=== PATIENT | female | born 1970 | race Caucasian/White ===

== ENCOUNTER 2020-03-22 09:38 | Outpatient (CLI) | payer BC, SELFPAY ==
--- NOTE | ~2020-03-22 | MR_ITS ---
EXAMINATION: MR lumbar spine wo con EXAM DATE: 03/22/2020 10:29 INDICATION: Left leg pain 3-4 months. TECHNIQUE: Multi-sequential, multiplanar MR images of the lumbar spine were obtained without contrast . Sagittal T1, T2, T2 fat saturation images. Axial T2 weighted images. Correlation was made with l umbar x-ray from 03/10/2020. FINDINGS: Mild to moderate loss of the L3-4 and L5-S1 disc heights, mild disc disease at the other josh mbar levels. The conus medullaris terminates at the L1/2 level and has normal signal intensity and mo rphology. The vertebral bodies are aligned in the AP dimension. There are no suspicious marrow signa l abnormalities. Paraspinal soft tissue is unremarkable. Level by level evaluation: T12-L1: Disc does not extend beyond the endplate margin. Facet arthropathy: Minimal. Neural foraminal stenosis: No stenosis. Central canal stenosis: No stenosis. L1-L2: Disc does not extend beyond the endplate margin. Facet arthropathy: Mild. Neural foraminal stenosis: No stenosis. Central canal stenosis: No stenosis. L2-L3: There is tiny right central disc extrusion with cephalad migration. Facet arthropathy: Mild. Neural foraminal stenosis: No stenosis. Central canal stenosis: No stenosis. L3-L4: There is a mild diffuse disc bulge. Facet arthropathy: Mild. Neural foraminal stenosis: No stenosis. Central canal stenosis: No stenosis. L4-L5: There is a mild diffuse disc bulge. Facet arthropathy: Mild. Neural foraminal stenosis: Mild left. Central canal stenosis: No stenosis. L5-S1: There is a mild diffuse disc bulge. Facet arthropathy: Mild to moderate left, mild right. Neural foraminal stenosis: No stenosis. Central canal stenosis: No stenosis. IMPRESSION: 1. Overall mild to moderate lumbar spondylosis. Reviewed, dictated and finalized at location G.
== END 2020-03-22 09:39 | disposition home or self-care (01) ==
PROVIDERS: PCP Family Medicine; Visit Provider Orthopaedic Surgery
DX: M51.36 Other intervertebral disc degeneration, lumbar region (principal); M47.816 Spondylosis without myelopathy or radiculopathy, lumbar region
CPT/HCPCS: 72148

== ENCOUNTER 2020-03-31 15:14 | Emergency (ER) | payer BC, SELFPAY ==
--- NOTE | ~2020-03-31 | CT_ITS ---
EXAMINATION: CT brain wo con DATE: 03/31/2020 19:37 INDICATION: Headache. TECHNIQUE: Computed tomography (CT) of the head was performed without intravenous contrast. The mA wa s adjusted according to patient size. Iterative reconstruction technique was employed. The dose-lengt h product was 605.33 mGy-cm. COMPARISON: None FINDINGS: There is a 9 mm hyperdense mass in right thalamus. There is no acute ischemic infarct. The ventricles are normal in size. There is a mucous retention cyst in right maxillary sinus. There is mi ld mucosal thickening in the paranasal sinuses. The mastoid air cells are normal. The orbits are norm al. IMPRESSION: 1. 9 mm hyperdense mass in right thalamus. The differential diagnosis includes acute intraparenchymal hematoma, cavernoma, dystrophic calcification, and metastatic disease. Brain MRI without and with co ntrast is recommended. Reviewed, dictated and finalized at location A. IMPRESSION: 1. 9 mm hyperdense mass in right thalamus. The differential diagnosis includes acute intraparenchymal hematoma, cavernoma, dystrophic calcification, and metas tatic disease. Brain MRI without and with contrast is recommended.
[2020-03-31 15:32] VITALS: BP 147/102; PULSE 90; RESP 20; TEMP 36.7; O2SAT 98
--- NOTE | 2020-03-31 15:37 | ECG_ITS ---
Measurements Intervals [place] Rate: 61 P: 33 LA: 200 QRS: 23 QRSD: 89 T: 46 QT: 407 QTc: 411 Interpretive Statements SINUS RHYTHM BORDERLINE AV CONDUCTION DELAY BASELINE ARTIFACT- I, II, III, AVR, AVL, AVF BORDERLINE ECG Electronically Signed On 03-31-2020 17:18:22 CDT by Eddie Duron D.O.
[2020-03-31 15:49] LABS: Glucose Point of Care 79 (65-105)
[2020-03-31 15:55] LABS: Basophils Absolute Auto 0.1 K/mm3 (0.0-0.1); Basophils Percent Auto 0.7 % (0.2-1.2); Eosinophils Absolute Auto 0.2 K/mm3 (0-0.3); Eosinophils Percent Auto 2.1 % (0-4.4); Hematocrit 42.3 % (37.0-47.0); Hemoglobin 14.3 g/dL (12.0-15.0); Immature Granulocyte Absolute 0.03 K/mm3 (0.00-0.031); Immature Granulocyte Percent A 0.3 % (0-0.5); Lymphocytes Absolute Auto 2.71 K/mm3 (0.9-3.2); Lymphocytes Percent Auto 29.4 % (18.3-44.2); Mean Corpuscular HGB Conc 33.8 g/dl (32-36); Mean Corpuscular Volume 91.6 fl (80-100); Mean Platelet Volume 8.6 fl (7.4-10.4); Monocytes Absolute Auto 0.6 K/mm3 (0.1-0.6); Monocytes Percent Auto 6.3 % (2.6-8.5); Neutrophils Absolute Auto 5.7 K/mm3 (1.3-6.7); Neutrophils Percent Auto 61.2 % (45.5-73.1); Platelet Count Result 302 k/mm3 (150-375); Red Blood Count 4.62 M/mm3 (4.2-5.4); Red Cell Distribution Width 12.3 % (11.5-14.5); White Blood Count 9.2 K/mm3 (4.5-10.0)
[2020-03-31 16:06] LABS: Prothrombin Time 12.4 Seconds (11.1-14.7)
[2020-03-31 16:07] LABS: Anion Gap 7 mmol/L (8-16); Blood Urea Nitrogen 13 mg/dL (7-17); Calcium 9.2 mg/dL (8.4-10.2); Carbon Dioxide 26 mmol/L (22-30); Chloride 105 mmol/L (98-107); Estimated CRCL calculation 100 ml/min; Estimated Glomerular Filt Rate > 60; Glucose 91 mg/dL (65-105); Partial Thromboplastin Time 26.8 SECONDS (22.3-36.8); Potassium 3.9 mmol/L (3.4-5.0); Sodium 138 mmol/L (137-145)
[2020-03-31 16:10] LABS: CRP 0.5 mg/dL (<1.0)
[2020-03-31 16:18] LABS: Troponin I < 0.012 ng/mL (0.000-0.034)
[2020-03-31 19:05] VITALS: BP 165/98; PULSE 72; RESP 17; O2SAT 100
--- NOTE | 2020-03-31 19:08 | ED.HA ---
HPI - Headache General Chief Complaint: Headache Stated Complaint: headache, confusion Time Seen by Provider: 03/31/20 19:07 History of Present Illness HPI Narrative: Severe right sided headache for 8 days. Started suddenly while cleaning her pool. Started posteriorly. Initially associated with burry vision, which was intermittent and has now resolved. Now she feels like she has trouble speaking as fast as she is thinking. She has also noted that today she was dropping things, no specific lateralization. She was seen at [facility] on the 6th when her symptoms started and had a negative head CT. She was then seen at [facility] the following day and had labs done. She said each times the symptoms improved briefly, but never resolve. She has a h/o migraines, this is different. No fever, weakness, trauma Related Data Home Medications Medication Instructions Recorded Confirmed multivitamin 1 tablet PO DAILY 05/21/19 03/31/20 [id number]-[id number]-caffeine 30 1 cap PO Q4-6H PRN 03/31/20 03/31/20 mg-50 mg-325 mg-40 mg capsule Allergies Allergy/AdvReac Type Severity Reaction Status Date / Time coconut Allergy Severe ANPHYLAXIS Verified 03/31/20 20:31 shellfish derived Allergy Severe ANPHYLAXIS Verified 03/31/20 20:31 Penicillins Allergy Mild Rash AN Verified 03/31/20 20:31 INFANT latex Allergy Unknown SKIN Verified 03/31/20 20:31 IRRITATION Wasp Allergy Unknown RASH, HIVES Uncoded 03/31/20 20:31 Review of Systems Review of Systems: All systems reviewed & are unremarkable except as noted in HPI and below Constitutional: Constitutional: Denies fever(s) and Denies weakness Eyes: Eyes: Reports change in vision ENT: Reports dizziness, Denies nasal congestion and Denies sore throat Cardiovascular: Cardiovascular: Denies chest pain Respiratory: Respiratory: Denies dyspnea Gastrointestinal: Gastrointestinal: Denies abdominal pain Genitourinary: Genitourinary: Denies dysuria Musculoskeletal: Musculoskeletal: Denies back pain Neurologic: Reports dizziness, Denies syncope, Reports headache(s), Denies numbness and Denies weakness [facility] Social History Social History Smoking status: Never smoker Alcohol intake: never Course Consultations Consultation #1: Dr. Brandt, SAULO at [facility]. He reports that it appears she had the same lesion found on a prior CT done there a few years ago. He said he is going to review her chart and call me back. Date: 03/31/20 Time: 20:24 Vital Signs Vital signs: Vital Signs Temperature 36.7 C 03/31/20 15:32 Pulse Rate 90 03/31/20 15:32 Respiratory Rate 20 03/31/20 15:32 Blood Pressure 147/102 H 03/31/20 15:32 Pulse Oximetry 98 03/31/20 15:32 Temperature 36.8 C 04/01/20 00:19 Pulse Rate 61 04/01/20 00:19 Respiratory Rate 16 04/01/20 00:19 Blood Pressure 134/86 04/01/20 00:19 Pulse Oximetry 96 04/01/20 00:19 MDM - Headache MDM Narrative Medical decision making narrative: Lesion on head CT. NSGY at [facility] believes it is old, but does recommend transfer for higher level evaluation Differential Diagnosis Differential diagnosis: Likely migraine and headache Medical Records Attestation: I reviewed the patient's medical records. Lab Data Attestation: I reviewed the patient's lab results. Result diagrams: 03/31/20 15:42 03/31/20 15:42 Labs: Lab Results 03/31/20 03/31/20 03/31/20 Range/Units 15:42 15:42 15:42 WBC 9.2 (4.5-10.0) K/mm3 RBC 4.62 (4.2-5.4) M/mm3 Hgb 14.3 (12.0-15.0) g/dL Hct 42.3 (37.0-47.0) % MCV 91.6 (80-100) fl MCH 31.0 (26-34) pg MCHC 33.8 (32-36) g/dl RDW 12.3 (11.5-14.5) % Plt Count 302 (150-375) k/mm3 MPV 8.6 (7.4-10.4) fl Immature Gran % (Auto) 0.3 (0-0.5) % Neut % (Auto) 61.2 (45.5-73.1) % Lymph % (Auto) 29.4 (18.3-44.2) % [place] % (Auto) 6.3 (2.6-8.5) % Eos %
[2020-03-31 19:31] LABS: Add Urine Microscopic? NO; Appearance Urine Clear (Clear); Bilirubin Urine Negative (Negative); Blood Urine Negative (Negative); Color Urine Straw (Yellow); Glucose Urine UA Negative (Negative); Ketones Urine Negative (Negative); Leukocyte Esterase Ur Negative LEU/UL (Negative); Nitrate Urine Negative (Negative); Protein Urine Negative (Negative); Specific Grav Ur 1.014 (1.001-1.035); Urobilinogen Urine Negative mg/dL (<2.0)
[2020-03-31] MEDS: SODIUM CHLORIDE 0.9% IV 1,000 ML 999 ML IV CONT (19:43)
[2020-03-31] MEDS: diphenhydrAMINE HCl INJ 50 MG/ML VIAL 25 MG IV PUSH (19:44)
[2020-03-31] MEDS: KETOROLAC 30 MG/ML VIAL (*BKC) IV PUSH (19:45)
[2020-03-31] MEDS: METOCLOPRAMIDE HCL INJ 10 MG/2 ML VIAL IV PUSH (19:45)
[2020-03-31 19:51] LABS: Barbiturate Screen Urine Positive (Negative); Benzodiazepines Screen Urine Negative (Negative)
[2020-03-31 19:52] LABS: Amphetamine Screen Urine Negative (Negative); Cocaine Screen Urine Negative (Negative); Methadone Screen Urine Negative (Negative); Opiate Screen Urine Negative (Negative); Phencyclidine Screen Urine Negative (Negative)
[2020-03-31 20:05] LABS: Cannabinoid Screen Urine Negative (Negative)
[2020-03-31] MEDS: LABETALOL HCL INJ 100 MG/20 ML VIAL 10 MG IV PUSH (20:20)
[2020-03-31 20:24] VITALS: BP 144/79; PULSE 66; RESP 16; O2SAT 96
[2020-03-31 21:33] VITALS: BP 138/72; PULSE 66; RESP 16; O2SAT 97
[2020-03-31 22:16] VITALS: BP 132/81; PULSE 61; RESP 18; O2SAT 96
--- NOTE | 2020-03-31 23:50 | PC.NURSE ---
2246-called [facility] to transport patient to [facility]. ETA 0030. Terry not available [phone] - Called [facility] to request transport. [facility] returned called and accepted at [phone]- called and cancelled [facility].
[2020-04-01 00:19] VITALS: BP 134/86; PULSE 61; RESP 16; TEMP 36.8; O2SAT 96
== END 2020-04-01 00:20 | disposition short-term general hospital (02) ==
LOC: ANHED 19:26
PROVIDERS: General Practice; Emergency Provider Emergency Medicine; PCP Family Medicine
DX: R51 Headache (principal); G93.9 Disorder of brain, unspecified
CPT/HCPCS: 36415; 70450; 80048; 80307; 81003; 84443; 84484; 85025; 85610; 85730; 86140; 93005; 96365; 96375; 99284; J0131; J1200; J1885; J2765; J7030

== ENCOUNTER 2020-04-17 09:14 | Outpatient (CLI) | payer BC, SELFPAY ==
--- NOTE | ~2020-04-17 | US_ITS ---
EXAMINATION: US carotid duplex BI DATE: 04/17/2020 09:53 INDICATION: Neck pain. TECHNIQUE: Grayscale, color Doppler, and pulsed Doppler images of the cervical carotid arteries were obtained. The degree of vessel stenosis is placed in one of the following categories: normal, <50%, 5 0-69%, >=70% but less than near-occlusion, near-occlusion, or total occlusion. Note that percent sten osis relative to normal distal artery lumen diameter is indirectly measured from velocity measurement s as described by Amaury, et al. Radiology 2003; 229:340-346. COMPARISON: None. FINDINGS: RIGHT: The right common carotid artery (CCA) peak systolic velocity (PSV) is 97 cm/s. The right internal car otid artery (ICA) PSV is 85 cm/s. The right ICA end-diastolic velocity (EDV) is 41 cm/s. The right IC A/CCA PSV ratio is 0.9. Grayscale and color Doppler images yield an estimate of <50% diameter reducti on from plaque in the ICA. There is antegrade flow in the right vertebral artery. LEFT: The left CCA PSV is 101 cm/s. The left ICA PSV is 77 cm/s. The left ICA EDV is 35 cm/s. The left ICA/ CCA PSV ratio is 0.7. Grayscale and color Doppler images yield an estimate of <50% diameter reduction from plaque in the ICA. There is antegrade flow in the left vertebral artery. IMPRESSION: 1. <50% stenosis in the right internal carotid artery. 2. <50% stenosis in the left internal carotid artery. Reviewed, dictated and finalized at location A.
== END 2020-04-17 09:15 | disposition home or self-care (01) ==
PROVIDERS: Visit Provider Family Medicine
DX: H53.9 Unspecified visual disturbance (principal); M54.2 Cervicalgia; R51.9 Headache, unspecified; I65.23 Occlusion and stenosis of bilateral carotid arteries
CPT/HCPCS: 93880

== ENCOUNTER 2020-12-23 14:11 | Outpatient (CLI) | payer BC, SELFPAY ==
[2020-12-23 18:57] LABS: Basophils Absolute Auto 0.1 K/mm3 (0.0-0.1); Basophils Percent Auto 0.6 % (0.2-1.2); Eosinophils Absolute Auto 0.2 K/mm3 (0-0.3); Eosinophils Percent Auto 2.2 % (0-4.4); Immature Granulocyte Absolute 0.04 K/mm3 (0.00-0.031); Immature Granulocyte Percent A 0.4 % (0-0.5); Lymphocytes Absolute Auto 2.34 K/mm3 (0.9-3.2); Lymphocytes Percent Auto 26.1 % (18.3-44.2); Mean Corpuscular HGB Conc 33.3 g/dl (32-36); Mean Corpuscular Hemoglobin 30.8 pg (26-34); Mean Corpuscular Volume 92.5 fl (80-100); Mean Platelet Volume 8.7 fl (7.4-10.4); Monocytes Absolute Auto 0.5 K/mm3 (0.1-0.6); Monocytes Percent Auto 5.6 % (2.6-8.5); Neutrophils Absolute Auto 5.8 K/mm3 (1.3-6.7); Neutrophils Percent Auto 65.1 % (45.5-73.1); Platelet Count Result 326 k/mm3 (150-375); Red Blood Count 4.54 M/mm3 (4.2-5.4); Red Cell Distribution Width 12.5 % (11.5-14.5)
[2020-12-23 19:08] LABS: D Dimer 0.32 ug/mL (<0.48)
[2020-12-23 19:22] LABS: Anion Gap 9 mmol/L (8-16); Blood Urea Nitrogen 12 mg/dL (7-17); Calcium 9.7 mg/dL (8.4-10.2); Carbon Dioxide 27 mmol/L (22-30); Chloride 107 mmol/L (98-107); Estimated Glomerular Filt Rate > 60; Glucose 124 mg/dL (65-105); Potassium 4.1 mmol/L (3.4-5.0); Sodium 143 mmol/L (137-145)
[2021-01-03 00:27] LABS: Antithrombin III Activity 101 % normal (80-135); Protein S Antigen, Free 108 % normal (50-147)
== END 2020-12-23 14:12 | disposition home or self-care (01) ==
LOC: ANHBWCLAB 14:13
PROVIDERS: PCP Family Medicine; Visit Provider Family Medicine
DX: I82.402 Acute embolism and thrombosis of unspecified deep veins of left lower extremity (principal); E55.9 Vitamin D deficiency, unspecified; Z79.899 Other long term (current) drug therapy
CPT/HCPCS: 36415; 80048; 81240; 81241; 85025; 85301; 85303; 85306; 85380

== ENCOUNTER 2020-12-23 15:16 | Outpatient (CLI) | payer BC, SELFPAY ==
--- NOTE | ~2020-12-23 | US_ITS ---
EXAMINATION: US venous doppler [facility] DATE: 12/23/2020 15:53 INDICATION: Pain, palpable lump and skin discoloration in the right lower limb. TECHNIQUE: Grayscale ultrasound images without and with compression and Doppler ultrasound images of the bilateral lower extremity veins were obtained. COMPARISON: None. FINDINGS: The visualized portions of right common femoral vein, profunda (deep) femoral vein, femoral vein, pop liteal vein, posterior tibial veins, peroneal veins, gastrocnemius vein and greater saphenous vein ou tflow are patent. The palpable abnormality of concern appears to correspond to a patent and compressi ble superficial vein at the medial right calf. No abnormal masses or fluid collections identified. The visualized portions of left common femoral vein, profunda femoral vein, femoral vein, popliteal v ein, posterior tibial veins, peroneal veins, gastrocnemius vein and greater saphenous vein outflow ar e patent. IMPRESSION: 1. No deep venous thrombosis in either lower limb. 2. Palpable abnormality at the medial right calf corresponds to a patent subcutaneous vein. Reviewed, dictated and finalized at location A. IMPRESSION: 1. No deep venous thrombosis in either lower limb. 2. Palpable abnormality at the medial right calf corresponds to a patent subcut aneous vein.
== END 2020-12-23 15:17 | disposition home or self-care (01) ==
LOC: ANHIMG 15:19
PROVIDERS: PCP Family Medicine; Visit Provider Family Medicine
DX: I82.402 Acute embolism and thrombosis of unspecified deep veins of left lower extremity (principal)
CPT/HCPCS: 93970

== ENCOUNTER 2021-08-06 08:23 | Outpatient (CLI) | payer OTHER, SELFPAY ==
[2021-08-06 20:28] LABS: Hemoglobin A1C 5.1 % (<5.7)
== END 2021-08-06 08:24 | disposition home or self-care (01) ==
PROVIDERS: PCP Family Medicine; Visit Provider Family Medicine
DX: R73.9 Hyperglycemia, unspecified (principal)
CPT/HCPCS: 36415; 83036

== ENCOUNTER 2021-10-13 10:52 | Outpatient (CLI) | payer OTHER, SELFPAY | END 2021-10-13 10:53 | disposition home or self-care (01) | LOC: ANHBWCAUD 10:52 | PROVIDERS: PCP Family Medicine; Visit Provider Family Medicine | DX: H93.19 Tinnitus, unspecified ear (principal) | CPT/HCPCS: 92557; 92567 ==

== ENCOUNTER 2021-10-19 02:23 | Day surgery (SDC) | payer OTHER, SELFPAY ==
[2021-10-06 13:38] VITALS: BMI 41.8
[2021-10-19 11:21] VITALS: BP 156/99; PULSE 87; RESP 17; TEMP 36.2; O2SAT 98; BMI 41.8
--- NOTE | 2021-10-19 11:30 | WPDGICN ---
Assessment and Plan Assessment and plan (1) Colon cancer screening: Code(s): Z12.11 - Encounter for screening for malignant neoplasm of colon Status: Acute Assessment and Plan: Colonoscopy with possible biopsy or polypectomy or cautery or injection of substances. GI Consult Note Consult date/time: 10/19/21 11:30 HPI: Thuy Cordon is a 51 year old female Referred for colon cancer screening. she is not aware of any family history of colon cancer Review of Systems Review of Systems: All systems reviewed & are unremarkable except as noted in HPI and below PMFSH Past Medical History Medical History Arthritis Deep vein blood clot of left lower extremity Deep vein blood clot of right lower extremity Generalized headaches Inflammatory arthritis Lumbar degenerative disc disease Osteoarthritis of both knees Plantar fasciitis Trochanteric bursitis of both hips Surgical History Surgical History deliv NOS-unsp H/O adenoidectomy H/O: hysterectomy History of carpal tunnel release of both wrists History of cholecystectomy History of tonsillectomy Family History Family History Father Heart disease Acute myocardial infarction Grandparent Acute myocardial infarction Grandparent Acute myocardial infarction Grandparent Cancer Social History Social History Smoking status: Never smoker Alcohol intake: current Drinks per week: 1 Alcohol use details: Socially Substance use: never Substance use type: does not use Living arrangements: with family Spiritual care concerns: No Meds Home Medications and Allergies Home Medications Medication Instructions Recorded Confirmed Type multivitamin 1 tablet PO DAILY 05/21/19 10/19/21 History ascorbic acid 100 mg-elderberry 1 tablet PO DAILY 08/06/21 10/19/21 History fruit 50 mg chewable tablet cholecalciferol (vitamin D3) 125 125 mcg PO DAILY 08/06/21 10/19/21 History mcg (5,000 unit) capsule zinc 50 mg tablet 50 mg PO DAILY 08/06/21 10/19/21 History rizatriptan 10 mg PO PRN PRN 10/06/21 10/19/21 History topiramate 50 mg tablet 50 mg PO BID #180 tablet 10/07/21 10/19/21 Rx Allergies Allergy/AdvReac Type Severity Reaction Status Date / Time coconut Allergy Severe ANPHYLAXIS Verified 10/19/21 11:20 shellfish derived Allergy Severe ANPHYLAXIS Verified 10/19/21 11:20 Penicillins Allergy Mild Rash AN Verified 10/19/21 11:20 latex Allergy Unknown SKIN Verified 10/19/21 11:20 IRRITATION Wasp Allergy Unknown RASH, HIVES Uncoded 10/19/21 11:20 Vital Signs Vital Signs - 24 hr 10/19/21 11:21 Temperature 36.2 C L Pulse Rate 87 Respiratory Rate 17 Blood Pressure 156/99 H Pulse Oximetry 98 Exam Const: General: alert Orientation/consciousness: patient oriented x3 Resp: Auscultation: clear to auscultation bilaterally Cardio: Rhythm: regular rhythm GI: GI Palp: Yes Soft to palpation and No Tenderness to palpation present (GI) Neuro: General: patient oriented x3
[2021-10-19] MEDS: LACTATED RINGERS 1,000 ML 150 ML IV CONT (11:36)
--- NOTE | 2021-10-19 12:13 | WPDANESEPPF ---
Anes - Initial Pre Proc Eval Procedure: Operation Date: 10/19/21 12:30 Proposed Procedures p Screening Colonoscopy - David Rae MD Date/Time: 10/19/21 12:13 Surgeon: David Rae MD Pre Op Diagnosis: neoplasm screening Patient Data Age: 51 Gender: F Height: 1.73 m Weight: 124.8 kg Last Vital Signs Temp 97.2 F L 10/19/21 11:21 Pulse 87 10/19/21 11:21 Resp 17 10/19/21 11:21 BP 156/99 H 10/19/21 11:21 Pulse Ox 98 10/19/21 11:21 Allergies Allergy/AdvReac Type Severity Reaction Status Date / Time coconut Allergy Severe ANPHYLAXIS Verified 10/19/21 11:20 shellfish derived Allergy Severe ANPHYLAXIS Verified 10/19/21 11:20 Penicillins Allergy Mild Rash AN Verified 10/19/21 11:20 latex Allergy Unknown SKIN Verified 10/19/21 11:20 IRRITATION Wasp Allergy Unknown RASH, HIVES Uncoded 10/19/21 11:20 Home Medications Medication Instructions Recorded Confirmed Type multivitamin 1 tablet PO DAILY 05/21/19 10/19/21 History ascorbic acid 100 mg-elderberry 1 tablet PO DAILY 08/06/21 10/19/21 History fruit 50 mg chewable tablet cholecalciferol (vitamin D3) 125 125 mcg PO DAILY 08/06/21 10/19/21 History mcg (5,000 unit) capsule zinc 50 mg tablet 50 mg PO DAILY 08/06/21 10/19/21 History rizatriptan 10 mg PO PRN PRN 10/06/21 10/19/21 History topiramate 50 mg tablet 50 mg PO BID #180 tablet 10/07/21 10/19/21 Rx Patient hx anesthesia problems: none Family hx anesthesia problems: none Results Review: All pre-operative results and documents have been reviewed as part of the pre-operative evaluation. [facility] Past Medical History Medical History Arthritis Deep vein blood clot of left lower extremity Deep vein blood clot of right lower extremity Generalized headaches Inflammatory arthritis Lumbar degenerative disc disease Osteoarthritis of both knees Plantar fasciitis Trochanteric bursitis of both hips Surgical History Surgical History deliv NOS-unsp H/O adenoidectomy H/O: hysterectomy History of carpal tunnel release of both wrists History of cholecystectomy History of tonsillectomy Family History Family History Father Heart disease Acute myocardial infarction Grandparent Acute myocardial infarction Grandparent Acute myocardial infarction Grandparent Cancer Social History Social History Smoking status: Never smoker Alcohol intake: current Drinks per week: 1 Alcohol use details: Socially Substance use: never Substance use type: does not use Living arrangements: with family Spiritual care concerns: No Anes - Eval Final PreProcedure Day of Procedure 10/19/21 12:13 Patient weight: morbidly obese Heart: regular rate and rhythm Lungs: clear to auscultation Airway: Mallampati scale class II Neurological: alert and oriented Last oral intake: >/= 8 hours ASA classification: III Emergent: no Anesthetic plan: proceed Anesthesia type and monitoring: general GIVS and standard monitoring Results Review: All pre-operative results and documents have been reviewed as part of the pre-operative evaluation. Informed Consent: The patient's anesthetic plan and its attendant risks and benefits were discussed with the patient/family/POA. Questions were solicited and answers provided to the satisfaction of the patient/family/POA.
[2021-10-19 12:35] VITALS: BP 100/49; PULSE 67; RESP 17; O2SAT 97
[2021-10-19 12:45] VITALS: BP 119/63; PULSE 64; RESP 17; O2SAT 95
[2021-10-19 12:55] VITALS: BP 120/66; PULSE 65; RESP 17; O2SAT 98
== END 2021-10-19 13:03 | disposition home or self-care (01) ==
PROVIDERS: PCP Family Medicine; Visit Provider Internal Medicine Gastroenterology
PROC: 0DJD8ZZ Inspection of Lower Intestinal Tract, Via Natural or Artificial Opening Endoscopic (ICD-10-PCS; CPT 45378; principal; 2021-10-19 12:30)
DX: Z12.11 Encounter for screening for malignant neoplasm of colon (principal); K57.30 Diverticulosis of large intestine without perforation or abscess without bleeding; E66.01 Morbid (severe) obesity due to excess calories; Z68.41 Body mass index [BMI] 40.0-44.9, adult
CPT/HCPCS: 45378; J2704; J7120

== ENCOUNTER 2022-06-01 07:20 | Outpatient (CLI) | payer OTHER, SELFPAY ==
[2022-06-01 18:54] LABS: Basophils Percent Auto 0.3 % (0.2-1.2); Eosinophils Percent Auto 0.2 % (0-4.4); Hematocrit 45.6 % (37.0-47.0); Hemoglobin 15.1 g/dL (12.0-15.0); Immature Granulocyte Absolute 0.06 K/mm3 (0.00-0.031); Immature Granulocyte Percent A 0.5 % (0-0.5); Lymphocytes Absolute Auto 2.91 K/mm3 (0.9-3.2); Lymphocytes Percent Auto 24.4 % (18.3-44.2); Mean Corpuscular HGB Conc 33.1 g/dl (32-36); Mean Corpuscular Hemoglobin 30.5 pg (26-34); Mean Corpuscular Volume 92.1 fl (80-100); Mean Platelet Volume 8.9 fl (7.4-10.4); Monocytes Absolute Auto 0.6 K/mm3 (0.1-0.6); Monocytes Percent Auto 5.1 % (2.6-8.5); Neutrophils Absolute Auto 8.3 K/mm3 (1.3-6.7); Neutrophils Percent Auto 69.5 % (45.5-73.1); Platelet Count Result 410 k/mm3 (150-375); Red Blood Count 4.95 M/mm3 (4.2-5.4); Red Cell Distribution Width 12.7 % (11.5-14.5); White Blood Count 11.9 K/mm3 (4.5-10.0)
[2022-06-01 19:03] LABS: Alanine Aminotransferase 27 U/L (6-35); Albumin Level 4.4 g/dL (3.5-5.1); Alkaline Phosphatase 87 U/L (38-126); Anion Gap 9 mmol/L (8-16); Aspartate Amino Transferase 47 U/L (14-36); Bilirubin,Total 0.7 mg/dL (0.2-1.3); Blood Urea Nitrogen 14 mg/dL (7-17); Calcium 9.2 mg/dL (8.4-10.2); Carbon Dioxide 21 mmol/L (22-30); Chloride 108 mmol/L (98-107); Cholesterol 224 mg/dL (0-200); Estimated Glomerular Filt Rate > 60; Glucose 94 mg/dL (65-110); HDL Direct 49 mg/dL; Potassium 3.9 mmol/L (3.4-5.0); Sodium 138 mmol/L (137-145); Triglycerides 85 mg/dL (<150)
[2022-06-01 19:13] LABS: LDL Cholesterol Direct 140 mg/dL
== END 2022-06-01 07:21 | disposition home or self-care (01) ==
LOC: ANHBWCLAB 07:21
PROVIDERS: PCP Family Medicine; Visit Provider Family Medicine
DX: Z00.00 Encounter for general adult medical examination without abnormal findings (principal)
CPT/HCPCS: 36415; 80053; 80061; 85025

== ENCOUNTER 2023-01-08 09:19 | Emergency (ER) | payer OTHER, SELFPAY ==
[2023-01-08 09:28] VITALS: BP 129/81; PULSE 76; RESP 16; TEMP 36.4; O2SAT 99
--- NOTE | 2023-01-08 10:52 | ED.GENADULT ---
HPI - General Adult General Chief complaint: Upper Respiratory Infection Stated complaint: Sore Throat Source: patient Mode of arrival: ambulatory Limitations: no limitations History of Present Illness HPI narrative: Patient presents for evaluation of sore throat for the last 2 days. She had strep pharyngitis on 12/18/2022 was given a prescription for azithromycin which she completed as directed. Her symptoms improved however she had recurrence thereafter. She believes she had a low-grade fever. No chills, nausea, vomiting, diarrhea, cough or ear pain. Another family member had strep at the start of this month. She does not smoke. She is not taking any medications to assist with her symptom. Related Data Allergies Allergy/AdvReac Type Severity Reaction Status Date / Time coconut Allergy Severe ANPHYLAXIS Verified 01/08/23 09:37 shellfish derived Allergy Severe ANPHYLAXIS Verified 01/08/23 09:37 Penicillins Allergy Mild Rash AN Verified 01/08/23 09:37 INFANT latex Allergy Unknown SKIN Verified 01/08/23 09:37 IRRITATION Wasp Allergy Unknown RASH, HIVES Uncoded 01/08/23 09:37 Review of Systems Review of Systems: CONSTITUTIONAL: Reports subjective fever. Denies chills, or sweats. EYES: Denies visual changes, redness, or discharge. ENT: Reports sore throat. Denies rhinorrhea, congestion, or otalgia. CARDIOVASCULAR: Denies chest pain, palpitations, or edema. RESPIRATORY: Denies cough or dyspnea. GASTROINTESTINAL: Denies abdominal pain, nausea, vomiting, or diarrhea. GENITOURINARY: Denies dysuria or hematuria. SKIN: Denies rash or itching. MUSCULOSKELETAL: Denies back pain, joint pain, or myalgia. NEUROLOGIC: Denies headache, numbness, dizziness, or weakness. PSYCHIATRIC: Denies anxiety or depression. [facility] Past Medical History Medical History Arthritis Deep vein blood clot of left lower extremity Deep vein blood clot of right lower extremity Generalized headaches Inflammatory arthritis Lumbar degenerative disc disease Osteoarthritis of both knees Plantar fasciitis Trochanteric bursitis of both hips Surgical History Surgical History deliv NOS-unsp H/O adenoidectomy H/O: hysterectomy History of carpal tunnel release of both wrists History of cholecystectomy History of tonsillectomy Family History Family History Father Heart disease Acute myocardial infarction Grandparent Acute myocardial infarction Grandparent Acute myocardial infarction Grandparent Cancer Social History Social History Smoking status: Never smoker Alcohol intake: current Drinks per week: 1 Alcohol use details: Socially Substance use: never Substance use type: does not use Lack of Transportation: No Lack of Food: Never True Current Housing: I Have Housing Concerned About Future Housing: No Difficulty Paying Gas/Electric Bills: No Difficulty Paying for Meds: No Currently Unemployed: No Education: High School Diploma/GED Difficulty w/ Childcare or Family Care: No Living arrangements: with family Spiritual care concerns: No Exam Narrative: GENERAL: Well-appearing, well-nourished, and in no acute distress. HEAD: Normocephalic, atraumatic. EYES: PERRLA and EOMI. ENT: Nares clear, no rhinorrhea or epistaxis. Mucous membranes moist. Oropharynx without tonsillar hypertrophy exudate or other lesions. There is posterior pharyngeal erythema without exudate. Uvula is midline. Bilateral TMs pearly wong nonbulging NECK: Supple. No adenopathy or masses. No carotid bruits or JVD CHEST: Clear to auscultation. No respiratory distress. No wheezes rales or rhonchi HEART: Regular rate and rhythm. No murmur heard. Normal peripheral pulses. ABDOMEN: S
== END 2023-01-08 09:54 | disposition home or self-care (01) ==
PROVIDERS: Emergency Provider Nurse Practitioner; PCP Family Medicine
DX: J02.0 Streptococcal pharyngitis (principal); M17.0 Bilateral primary osteoarthritis of knee; M51.36 Other intervertebral disc degeneration, lumbar region; Z86.718 Personal history of other venous thrombosis and embolism
CPT/HCPCS: 87880; 99213; G0463

== ENCOUNTER 2023-04-02 07:29 | Outpatient (CLI) | payer OTHER, SELFPAY ==
--- NOTE | ~2023-04-02 | MR_ITS ---
MRI of the left hip Clinical history: Trochanteric bursitis Technique: Coronal T1-weighted, T2-weighted, and proton-density fat-sat images, and axial T1-weighted and proton-density fat-sat images were acquired through the pelvis. Coronal T2-weighted images and c oronal, axial, and sagittal proton-density fat-sat images were acquired through the left hip. Findings: There is no fracture, avascular necrosis, or transient osteoporosis of either hip. Bone mar row signals the proximal femora and visualized pelvic bones are unremarkable. Bilateral hip and SI heladio ints are intact. No significant erosive or degenerative arthropathy. No joint effusion. Questionable small tear of the superolateral left acetabular labrum. Visualized musculature about the pelvis and left hip is unremarkable. No muscle atrophy or edema. Vis ually tendons are intact. No evidence for bursitis. No other soft tissue mass or fluid collection see n. IMPRESSION: Questionable subtle tear of the superior lateral left acetabular labrum. No other significant findings. Reviewed, dictated and finalized at location .
--- NOTE | ~2023-04-02 | MR_ITS ---
MRI of the right hip Clinical history: Trochanteric bursitis Technique: Coronal T1-weighted, T2-weighted, and proton-density fat-sat images, and axial T1-weighted and proton-density fat-sat images were acquired through the pelvis. Coronal T2-weighted images and c oronal, axial, and sagittal proton-density fat-sat images were acquired through the right hip. Findings: There is no fracture, avascular necrosis, or transient osteoporosis of either hip. Bone mar row signals the proximal femora and visualized pelvic bones are unremarkable. Bilateral hip and SI heladio ints are intact. No significant erosive or degenerative arthropathy. No joint effusion. No right acet abular labral tear identified. Visualized musculature about the pelvis and right hip is unremarkable. No muscle atrophy or edema. Vi sually tendons are intact. Possible minimal edematous change at the right greater trochanteric bursa. No other soft tissue mass or fluid collection seen. IMPRESSION: Possible minimal incipient right trochanteric bursitis. No other significant abnormalities. Reviewed, dictated and finalized at [facility] [place].
== END 2023-04-02 07:30 | disposition home or self-care (01) ==
PROVIDERS: PCP Family Medicine; Visit Provider Orthopaedic Surgery
DX: M70.61 Trochanteric bursitis, right hip (principal); M70.62 Trochanteric bursitis, left hip
CPT/HCPCS: 73721

== ENCOUNTER 2023-06-16 01:49 | Day surgery (SDC) | payer OTHER, SELFPAY ==
[2023-06-07 09:55] VITALS: BMI 39.5
--- NOTE | 2023-06-07 09:59 | PC.NURSE ---
Report to the Outpatient Waiting Room, entrance under the green pavilion located off [facility], at time 0830 on date06/16/23. Planned Procedure Time: 1030. Time changes happen often and if your time is changed the preop area will call you the afternoon before. - You and your visitor will be asked to self-screen and do not enter if you have any COVID symptoms. - A mask is optional within the hospital at this time. Patients may have clear liquids (water, carbonated beverages, clear teas, apple juice) until 3 hours prior to surgery with a maximum of 20 ounces. - No food from midnight until time of surgery Take the following medications with a SIP of water the morning of surgery: TOPIRAMATE DO NOT STOP ANY OF YOUR OTHER PRESCRIPTION MEDICATIONS PRIOR TO SURGERY ?EXCEPT THE FOLLOWING Medications to discontinue per physician: VITAMINS Date to take last dose: 06/12/23 Please no make-up, nail korean, hairspray, perfume, deodorant, or body powder the day of surgery. No jewelry (including any body piercings) or valuables the day of surgery, leave them at home. Please take a shower or bath the night before, or the morning of, surgery with an antibacterial soap. Wear comfortable, loose fitting clothing. - Jewelry must be removed prior to entering the operating room. Rings and piercings that are not removed may be cut off. - The hospital will not accept responsibility for valuables. - Please leave all valuables, including medications, at home the day of surgery. If you are going home after surgery, a licensed m48/m60 tank driver must drive you home. - NO public transportation without another adult if you receive anesthesia. - We recommend that an adult stay with you for 24 hours following discharge. - We also recommend that you do not drive, make important decision, drink alcoholic beverages, or take any drugs that were not prescribed by your health care provider for at least 24 hours after your discharge time. Follow any additional instructions given to you from your surgeon. If you or anyone in your household have experienced Covid symptoms in the past week, please notify your surgeon or the nurse liaison at the phone number below for possible testing. Telephone instructions given to PT - MADDIE JIMENEZ and asked if any additional questions and then verbalized understanding. Patient advised to call surgeon office or pre surgery nurse liaison [phone] if any additional questions.
[2023-06-16] VITALS (12 sets, daily range): BP systolic 104–152; BP diastolic 69–99; PULSE 60–79; RESP 12–18; TEMP 36.6–36.7; O2SAT 92–99
--- NOTE | 2023-06-16 09:56 | WPDANESEPPF ---
Anes - Initial Pre Proc Eval Procedure: Operation Date: 06/16/23 10:30 Proposed Procedures p Right Hip Arthroscopic Trochanteric Bursectomy, Ileotibial Band Release - Steve Hsu MD Date/Time: 06/16/23 09:56 Surgeon: Steve Hsu MD Pre Op Diagnosis: right hip trochanteric bursitis Patient Data Age: 53 Gender: F Height: 1.73 m Weight: 121 kg Allergies Allergy/AdvReac Type Severity Reaction Status Date / Time coconut Allergy Severe ANPHYLAXIS Verified 06/07/23 09:54 shellfish derived Allergy Severe ANPHYLAXIS Verified 06/07/23 09:54 Penicillins Allergy Mild Rash AN Verified 06/07/23 09:54 INFANT latex Allergy Unknown SKIN Verified 06/07/23 09:54 IRRITATION propoxyphene AdvReac Nausea and Verified 06/07/23 09:55 [From [place]-N] Vomiting Wasp Allergy Unknown RASH, HIVES Uncoded 06/07/23 09:54 Home Medications Medication Instructions Recorded Confirmed Type multivitamin 1 tablet PO DAILY 04/15/23 06/07/23 History topiramate 50 mg tablet 50 mg PO DAILY #90 tabs 05/27/23 06/07/23 Rx oxycodone-acetaminophen 5 mg-325 1 - 2 tablet PO Q4-6H PRN pain #30 06/16/23 Rx mg tablet tabs Patient hx anesthesia problems: none and other (motion sickness) Family hx anesthesia problems: none Results Review: All pre-operative results and documents have been reviewed as part of the pre-operative evaluation. [facility] Past Medical History Medical History Arthritis Deep vein blood clot of left lower extremity Deep vein blood clot of right lower extremity Generalized headaches Inflammatory arthritis Lumbar degenerative disc disease Osteoarthritis of both knees Plantar fasciitis Trochanteric bursitis of both hips Surgical History Surgical History deliv NOS-unsp H/O adenoidectomy H/O: hysterectomy History of carpal tunnel release of both wrists History of cholecystectomy History of tonsillectomy Family History Family History Father Heart disease Acute myocardial infarction Grandparent Acute myocardial infarction Grandparent Acute myocardial infarction Grandparent Cancer Social History Social History Smoking status: Never smoker Alcohol intake: never Drinks per week: 1 Alcohol use details: Socially Substance use: never Substance use type: does not use Lack of Transportation: No Lack of Food: Never True Current Housing: I Have Housing Concerned About Future Housing: No Difficulty Paying Gas/Electric Bills: No Difficulty Paying for Meds: No Currently Unemployed: No Education: High School Diploma/GED Difficulty w/ Childcare or Family Care: No Living arrangements: with family Spiritual care concerns: No Anes - Eval Final PreProcedure Day of Procedure 06/16/23 09:56 Patient weight: morbidly obese Heart: regular rate and rhythm Lungs: clear to auscultation Airway: Mallampati scale class II Neurological: alert and oriented Last oral intake: >/= 8 hours ASA classification: III Emergent: no Anesthetic plan: proceed Anesthesia type and monitoring: general LMA and standard monitoring Results Review: All pre-operative results and documents have been reviewed as part of the pre-operative evaluation. Informed Consent: The patient's anesthetic plan and its attendant risks and benefits were discussed with the patient/family/POA. Questions were solicited and answers provided to the satisfaction of the patient/family/POA.
[2023-06-16] MEDS: LACTATED RINGERS 1,000 ML 30 ML IV CONT ×2 (10:00→11:52)
[2023-06-16] MEDS: KETOROLAC 15 MG/ML VIAL (*BKC) IV PUSH (10:00)
[2023-06-16] MEDS: ACETAMINOPHEN 500 MG TABLET 1000 MG PO (10:00)
--- NOTE | 2023-06-16 10:10 | WPDHPUPDATE1 ---
History and Physical Update Update Date/Time: 06/16/23 10:10 History and Physical has been reviewed, including an updated exam of the patient. There are NO changes in the patient's condition. Risks, benefits, and alternatives have been discussed and questions answered. Patient agrees to proceed with procedure.
[2023-06-16] MEDS: ceFAZolin 3 GM/D5W 100 ML 100 ML IVPB (10:35)
[2023-06-16] MEDS: SCOPOLAMINE 1.5 MG PATCH TRANSDERM (11:21)
[2023-06-16] MEDS: BUPIVACAINE/EPINEPHRINE 0.5% 10 ML VIAL 30 ML INFILTRATE (11:22)
[2023-06-16] MEDS: fentaNYL CITRATE INJ (*CRX) 100 MCG/2 ML VIAL 25 MCG IV PUSH (12:40)
[2023-06-16] MEDS: oxyCODONE HCL (*CRX) 5 MG TAB IR PO (14:07)
--- NOTE | 2023-06-16 16:07 | W.PM.PROC2 ---
Procedure Note - Detailed Date of Procedure 06/16/23 Pre-op Diagnosis right hip trochanteric bursitis Post-op Diagnosis Same Procedure Performed Right hip IT band release and trochanteric bursectomy. Surgeon Steve Hsu MD Bottom Hoop Driver Trisha Dugan PA-C Anesthesia General Description of Procedure Preoperative antibiotics were given. The patient was brought to the operating room. A general anesthetic was administered. She was carefully placed in the lateral position on the beanbag. The hip was prepped and draped in the usual sterile fashion. Standard superior and inferior arthroscopic portals were established. The high point of the greater trochanter was central to the portals. The fascia was cleared using the arthroscopic shaver. A longitudinal split was created in the fascia over the high point of the trochanter. The leg was abducted and the bursa was removed using the shaver. The radiofrequency probe was used were necessary to control small bleeding vessels. Particular care was taken to avoid moving posteriorly towards the sciatic nerve. The abductor musculature was identified and protected. There were no tears noted. Abrasion at the high point of the trochanter was observed and confirmed. The complete release of this area was confirmed. The hip was internally and externally rotated to assure that there was no further contact or pressure points. Estimated Blood Loss -10.0 Pathology None sent Complications No immediate complications Condition Stable Disposition PACU [facility] Billing Surgery - Charge Forward: Surgery Billing
== END 2023-06-16 14:47 | disposition home or self-care (01) ==
PROVIDERS: PCP Family Medicine; Visit Provider Orthopaedic Surgery
PROC: (CPT 29860; principal; 2023-06-16 10:30)
DX: M70.61 Trochanteric bursitis, right hip (principal); Z86.718 Personal history of other venous thrombosis and embolism; E66.01 Morbid (severe) obesity due to excess calories; Z68.41 Body mass index [BMI] 40.0-44.9, adult
CPT/HCPCS: 29999; A9270; J0690; J1100; J1170; J1200; J1885; J2250; J2371; J2405; J2704; J3010; J7120

== ENCOUNTER 2023-09-01 00:18 | Day surgery (SDC) | payer OTHER, SELFPAY ==
[2023-08-24 13:37] VITALS: BMI 40.2
--- NOTE | 2023-08-24 13:45 | PC.NURSE ---
Report to the Outpatient Waiting Room, entrance under the green pavilion located off [facility], at time on date . Planned Procedure Time: . Time changes happen often and if your time is changed the preop area will call you the afternoon before. - You and your visitor will be asked to self-screen and do not enter if you have any COVID symptoms. - A mask is optional within the hospital at this time. Patients may have clear liquids (water, carbonated beverages, clear teas, apple juice) until 3 hours prior to surgery with a maximum of 20 ounces. - No food from midnight until time of surgery - Infants may have breast milk until 4 hours before surgery, infant formula 6 hours prior to surgery. - Children will be allowed to drink immediately following surgery. If applicable, please bring a bottle or sippy cup to assist with drinking. Juice, water, soda, and popsicles are readily available. For infants on formula, please bring formula the day of surgery. Pacifiers are allowed. Take the following medications with a SIP of water the morning of surgery: TOPARIMATE DO NOT STOP ANY OF YOUR OTHER PRESCRIPTION MEDICATIONS PRIOR TO SURGERY ?EXCEPT THE FOLLOWING Medications to discontinue per physician MULTIVITAMIN Date to take last dose 08/29/23 Please no make-up, nail chinese, hairspray, perfume, deodorant, or body powder the day of surgery. No jewelry (including any body piercings) or valuables the day of surgery, leave them at home. Please take a shower or bath the night before, or the morning of, surgery with an antibacterial soap. Wear comfortable, loose fitting clothing. Children are encouraged to wear pajamas. - Jewelry must be removed prior to entering the operating room. Rings and piercings that are not removed may be cut off. - The hospital will not accept responsibility for valuables. - Please leave all valuables, including medications, at home the day of surgery. If you are going home after surgery, a licensed stock car driver must drive you home. - NO public transportation without another adult if you receive anesthesia. - We recommend that an adult stay with you for 24 hours following discharge. - We also recommend that you do not drive, make important decision, drink alcoholic beverages, or take any drugs that were not prescribed by your health care provider for at least 24 hours after your discharge time. For Pediatric surgeries, we recommend two adults accompany the child home. Follow any additional instructions given to you from your surgeon. If you or anyone in your household have experienced Covid symptoms in the past week, please notify your surgeon or the nurse liaison at the phone number below for possible testing. Telephone instructions given to PATIENT_and asked if any additional questions and then verbalized understanding. Patient advised to call surgeon office or pre surgery nurse liaison [phone] if any additional questions.
--- NOTE | 2023-08-31 10:30 | WPDANESEPPF ---
Anes - Initial Pre Proc Eval Procedure: Operation Date: 09/01/23 14:00 Proposed Procedures p Left Hip Arthroscopic Trochanteric Bursectomy with Iliotibial Band Release - Steve Hsu MD Date/Time: 08/31/23 10:30 Surgeon: Steve Hsu MD Pre Op Diagnosis: Lt Hip Trochanteric Bursititis Patient Data Age: 53 Gender: F Height: 1.73 m Weight: 120 kg Allergies Allergy/AdvReac Type Severity Reaction Status Date / Time coconut Allergy Severe ANPHYLAXIS Verified 08/24/23 13:36 shellfish derived Allergy Severe ANPHYLAXIS Verified 08/24/23 13:36 Penicillins Allergy Mild Rash AN Verified 08/24/23 13:36 INFANT latex Allergy Unknown SKIN Verified 08/24/23 13:36 IRRITATION propoxyphene AdvReac Nausea and Verified 08/24/23 13:36 [From Darvocet-N] Vomiting Wasp Allergy Unknown RASH, HIVES Uncoded 08/24/23 13:36 Home Medications Medication Instructions Recorded Confirmed Type multivitamin 1 tablet PO DAILY 04/15/23 08/24/23 History topiramate 50 mg tablet 50 mg PO DAILY #90 tabs 05/27/23 08/24/23 Rx Patient hx anesthesia problems: none Family hx anesthesia problems: none Results Review: All pre-operative results and documents have been reviewed as part of the pre-operative evaluation. [facility] Past Medical History Medical History (Updated 07/29/23 @ 15:24 by Niya Stacy) Arthritis Deep vein blood clot of left lower extremity Deep vein blood clot of right lower extremity Generalized headaches Inflammatory arthritis Lumbar degenerative disc disease Osteoarthritis of both knees Plantar fasciitis Trochanteric bursitis of both hips Surgical History Surgical History (Updated 07/29/23 @ 14:23 by Niya Stacy) deliv NOS-unsp H/O adenoidectomy H/O: hysterectomy History of carpal tunnel release of both wrists History of cholecystectomy History of hip surgery (~06/16/23) Rt - Bursectomy w/IT band release History of tonsillectomy Family History Family History Father Heart disease Acute myocardial infarction Grandparent Acute myocardial infarction Grandparent Acute myocardial infarction Grandparent Cancer Social History Social History Smoking status: Never smoker Alcohol intake: current Drinks per week: 1 Alcohol use details: 3 PER MONTH Substance use: never Substance use type: does not use Lack of Transportation: No Lack of Food: Never True Current Housing: I Have Housing Concerned About Future Housing: No Difficulty Paying Gas/Electric Bills: No Difficulty Paying for Meds: No Currently Unemployed: No Education: High School Diploma/GED Difficulty w/ Childcare or Family Care: No Living arrangements: with family Spiritual care concerns: No Anes - Eval Final PreProcedure Day of Procedure 08/31/23 10:30 Patient weight: morbidly obese Heart: regular rate and rhythm Lungs: clear to auscultation Airway: Mallampati scale class II Neurological: alert and oriented Last oral intake: >/= 8 hours ASA classification: III Emergent: no Anesthetic plan: proceed Anesthesia type and monitoring: general LMA and standard monitoring Results Review: All pre-operative results and documents have been reviewed as part of the pre-operative evaluation. Informed Consent: The patient's anesthetic plan and its attendant risks and benefits were discussed with the patient/family/POA. Questions were solicited and answers provided to the satisfaction of the patient/family/POA.
[2023-09-01] VITALS (11 sets, daily range): BP systolic 128–149; BP diastolic 73–93; PULSE 58–80; RESP 12–21; TEMP 36.2–36.9; O2SAT 94–99
--- NOTE | 2023-09-01 10:19 | WPDHPUPDATE1 ---
History and Physical Update Update Date/Time: 09/01/23 10:19 History and Physical has been reviewed, including an updated exam of the patient. There are NO changes in the patient's condition. Risks, benefits, and alternatives have been discussed and questions answered. Patient agrees to proceed with procedure.
[2023-09-01] MEDS: KETOROLAC 15 MG/ML VIAL (*BKC) IV PUSH (12:30)
[2023-09-01] MEDS: LACTATED RINGERS 1,000 ML 30 ML IV CONT ×3 (12:30→16:13)
[2023-09-01] MEDS: ACETAMINOPHEN 500 MG TABLET 1000 MG PO (12:30)
[2023-09-01] MEDS: ceFAZolin 3 GM/D5W 100 ML 100 ML IVPB (13:39)
[2023-09-01] MEDS: BUPIVACAINE/EPINEPHRINE 0.5% 10 ML VIAL 30 ML INFILTRATE (14:15)
--- NOTE | 2023-09-01 14:55 | P.OP_ITS ---
Procedure Note - Detailed Date of Procedure 09/01/23 Pre-op Diagnosis Lt Hip Trochanteric Bursititis Post-op Diagnosis Same Procedure Performed Left hip trochanteric bursectomy and IT band release. Surgeon Steve Hsu MD Foil Stamp Operator Trisha Dugan PA-C Anesthesia General Description of Procedure Preoperative antibiotics were given.? The patient was brought to the operating room.? A general anesthetic was administered.? She was carefully placed in the lateral position on the beanbag.? The hip was prepped and draped in the usual sterile fashion.? Standard superior and inferior arthroscopic portals were established.? The high point of the greater trochanter was central to the portals.? The fascia was cleared using the arthroscopic shaver.? A longitudinal split was created in the fascia over the high point of the trochanter. The leg was abducted and the bursa was removed using the shaver.? The radiofrequency probe was used were necessary to control small bleeding vessels.? Particular care was taken to avoid moving posteriorly towards the sciatic nerve.? The abductor musculature was identified and protected. There were no tears noted.? Abrasion at the high point of the trochanter was observed and confirmed.? The complete release of this area was confirmed.? The hip was internally and externally rotated to assure that there was no further contact or pressure points. Findings matched the contralateral hip. Physician transition assistant, Trisha Dugan PA-C, required for surgery; including patient positioning, draping, manipulating the limb for exposure, assisting with arthroscopic camera control, wound closure, and dressing placement. Estimated Blood Loss 5 Complications No immediate complications Condition Stable Disposition PACU [facility] Billing Surgery - Charge Forward: Surgery Billing
[2023-09-01] MEDS: fentaNYL CITRATE INJ (*CRX) 100 MCG/2 ML VIAL 25 MCG IV PUSH ×4 (15:11→16:17)
--- NOTE | 2023-09-01 15:32 | ECG_ITS ---
Measurements Intervals [place] Rate: 62 P: 53 ND: 200 QRS: 32 QRSD: 102 T: 35 QT: 439 QTc: 449 Interpretive Statements SINUS RHYTHM NORMAL ECG COMPARED TO ECG 03/31/2020 15:43:37 NO SIGNIFICANT CHANGES Electronically Signed On 09-02-2023 15:03:22 TRAFFIC SUPERVISOR by Sai Washington M.D.
--- NOTE | 2023-09-01 15:34 | SUR.PHASEI ---
DR STRONG NOTIFIED RE: PATIENT COMPLAIN OF HEAVY FEELING IN EPIGASTRIC AREA OF CHEST RADIATING DIRECTLY TO THE BACK. NO SOB. EKG CALLED TO DO EKG. TROPONIN LEVEL WILL BE DRAWN.
--- NOTE | 2023-09-01 15:55 | SUR.PHASEI ---
EKG GIVEN TO DR. STRONG; TROPONIN LEVEL SENT TO Lab; AWAITING TROPONIN LEVEL. PATIENT STATES EPIGASTRIC AND BACK PAIN IS NOW HEAVY AND SHARP. NOT REPRODUCIBLE WITH PALPATION.
--- NOTE | 2023-09-01 16:18 | SUR.PHASEI ---
PATIENT REPORTS CHEST AND BACK PAIN UNCHANGED. AWAITING TROPONIN LEVEL RESULT.
[2023-09-01 16:19] LABS: Troponin I < 0.012 ng/mL (0.000-0.034)
--- NOTE | 2023-09-01 16:29 | WPDANESPN ---
Anes - Prog Note Post-Op Date/Time: 09/01/23 16:29 Cardiovascular status: normal Respiratory status: normal Airway patency: baseline Mental status: baseline Post-Op hydration status: normal Vital Signs: Last Vital Signs Temp 36.2 C L 09/01/23 14:55 Pulse 59 L 09/01/23 16:10 Resp 13 09/01/23 16:10 BP 143/78 H 09/01/23 16:10 Pulse Ox 99 09/01/23 16:10 O2 Del Method Nasal Cannula 09/01/23 16:10 O2 Flow Rate 2 09/01/23 16:10 Pain Score (VAS): 6 I/O: Intake & Output 09/01/23 09/01/23 09/01/23 07:59 15:59 23:59 Intake Total 1100 800 Balance 1100 800 09/01/23 15:51 Troponin I < 0.012 Post-procedural complaints: none Other Findings: Patient in PACU complaining of chest heaviness that radiates to her back. Vital signs stable, no dyspnea, no other symptoms. Patient calm and relaxed. Pain is not reproducible. Slightly worse with inspiration. EKG and troponin ordered and both negative. Patient oxygen saturation normal and no shortness of breath makes PE low on differential despite DVT history in past but will keep this in mind. Pepcid already given and calcium carbonate tablets given to see if this helps relieve the pain. Will continue to monitor.
[2023-09-01] MEDS: CALCIUM CARBONATE (TUMS) 500 MG (200 MG ELEMENTAL) 600 MG PO (16:56)
--- NOTE | 2023-09-01 17:25 | SUR.PHASEII ---
NO PAIN/REDNESS/INCREASED WARMTH TO CALVES. STRONG BILATERAL PEDAL PULSES.
[2023-09-01] MEDS: oxyCODONE HCL (*CRX) 5 MG TAB IR PO (18:04)
--- NOTE | 2023-09-01 18:25 | SUR.PHASEII ---
Patient feels good enough to get dressed and go home. Alert, breathing well. Stood and transferred to w/c and toilet. Voided without difficulty and was able to walk to sink and wash hands. Wants to go home. Discharged with .
== END 2023-09-01 18:28 | disposition home or self-care (01) ==
PROVIDERS: Anesthesiology; PCP Family Medicine; Visit Provider Orthopaedic Surgery
PROC: (CPT 29860; principal; 2023-09-01 14:00)
DX: M70.62 Trochanteric bursitis, left hip (principal); E66.01 Morbid (severe) obesity due to excess calories; Z68.41 Body mass index [BMI] 40.0-44.9, adult
CPT/HCPCS: 29999; 36415; 84484; 93005; A9270; J0330; J0690; J1100; J1885; J2250; J2405; J2704; J3010; J7120

== ENCOUNTER 2023-11-07 08:05 | Outpatient (CLI) | payer OTHER, SELFPAY ==
[2023-11-07 19:01] LABS: Alanine Aminotransferase 27 U/L (6-35); Albumin Level 3.9 g/dL (3.5-5.1); Alkaline Phosphatase 85 U/L (38-126); Anion Gap 5 mmol/L (4-12); Aspartate Amino Transferase 65 U/L (14-36); Bilirubin,Total 0.6 mg/dL (0.2-1.3); Blood Urea Nitrogen 11 mg/dL (7-17); Calcium 8.8 mg/dL (8.4-10.2); Carbon Dioxide 24 mmol/L (22-30); Chloride 112 mmol/L (98-107); Cholesterol 194 mg/dL (0-200); Estimated Glomerular Filt Rate > 60; Glucose 87 mg/dL (65-110); HDL Direct 46 mg/dL; Magnesium 2.2 mg/dL (1.6-2.3); Potassium 3.8 mmol/L (3.4-5.0); Sodium 141 mmol/L (137-145); Triglycerides 112 mg/dL (<150)
[2023-11-07 19:12] LABS: LDL Cholesterol Direct 135 mg/dL
[2023-11-07 19:20] LABS: Basophils Absolute Auto 0.1 K/mm3 (0.0-0.1); Basophils Percent Auto 0.8 % (0.2-1.2); Eosinophils Absolute Auto 0.4 K/mm3 (0-0.3); Eosinophils Percent Auto 4.7 % (0-4.4); Hematocrit 45.1 % (37.0-47.0); Immature Granulocyte Absolute 0.05 K/mm3 (0.00-0.031); Immature Granulocyte Percent A 0.6 % (0-0.5); Lymphocytes Absolute Auto 2.52 K/mm3 (0.9-3.2); Lymphocytes Percent Auto 29.3 % (18.3-44.2); Mean Corpuscular Hemoglobin 29.8 pg (26-34); Mean Platelet Volume 8.8 fl (7.4-10.4); Monocytes Absolute Auto 0.6 K/mm3 (0.1-0.6); Monocytes Percent Auto 7.2 % (2.6-8.5); Neutrophils Absolute Auto 4.9 K/mm3 (1.3-6.7); Neutrophils Percent Auto 57.4 % (45.5-73.1); Platelet Count Result 332 k/mm3 (150-375); Red Cell Distribution Width 13.2 % (11.5-14.5); White Blood Count 8.6 K/mm3 (4.5-10.0)
[2023-11-07 19:47] LABS: Vitamin D 25 Hydroxy 33.4 ng/mL
== END 2023-11-07 08:06 | disposition home or self-care (01) ==
PROVIDERS: PCP Nurse Practitioner Adult Health; Visit Provider Nurse Practitioner Adult Health
DX: I10 Essential (primary) hypertension (principal); E55.9 Vitamin D deficiency, unspecified; R73.9 Hyperglycemia, unspecified
CPT/HCPCS: 36415; 80053; 80061; 82306; 83036; 83735; 84443; 85025

== ENCOUNTER 2023-11-22 12:11 | Observation (INO) | payer OTHER, SELFPAY ==
[2023-11-22] VITALS (17 sets, daily range): BP systolic 112–163; BP diastolic 63–95; PULSE 60–75; RESP 12–22; TEMP 36.2–36.7; O2SAT 96–100; BMI 41.5
--- NOTE | ~2023-11-22 | CT_ITS ---
EXAMINATION: CT abdomen pelvis w con DATE: 11/22/2023 13:58 INDICATION: Right lower quadrant abdominal pain. TECHNIQUE: Computed tomography (CT) of the abdomen and pelvis was performed with 100 mL Omnipaque 350 intravenous contrast. Automated exposure control and iterative reconstruction technique were employe d. The dose-length product was 1524.87 mGy-cm. COMPARISON: CT abdomen and pelvis 04/12/2019 FINDINGS: The visualized portions of the lung bases demonstrate mild atelectasis. No pleural effusion . The heart size is normal. No pericardial effusion. The liver and spleen are normal. There are owens es of cholecystectomy. The pancreas, adrenal glands, and right kidney are normal. There is a 9 mm cys t in left kidney. The appendix is fluid-filled and dilated to 11 mm with surrounding fat stranding, c onsistent with appendicitis. There are no pathologically enlarged lymph nodes. Aortic atherosclerosis is noted. There is no ascites. There is an umbilical hernia containing fat. There is moderate thorac ic spondylosis and severe lower lumbar spondylosis. There is mild chronic anterior wedging of multipl e vertebral bodies. IMPRESSION: 1. Acute appendicitis. Reviewed, dictated and finalized at location A. IMPRESSION: 1. Acute appendicitis.
--- NOTE | 2023-11-22 12:33 | ED.ABDPAIN ---
HPI - Abdominal Pain General Chief Complaint: Abdominal Pain Stated Complaint: right sided abd pain Time Seen by Provider: 11/22/23 12:26 History of Present Illness HPI narrative: Patient is a 53-year-old female here with RLQ abdominal pain. Patient notes that she began having pain about 5 days ago. pain is located in the right lower quadrant and radiates upward into the right flank. She notes it is associated with some waves of nausea as well as decreased appetite. She noted 2 nights ago she had a subjective fever overnight. She has had some decreased p.o. intake throughout the last 5 days due to her discomfort. She did eat around 830 this morning and it was shortly followed by nausea. No episodes of vomiting. She continues to have bowel movements, notes that they are a bit elementary vocal music teacher in color and somewhat loose. She denies any blood in stool. She has had gallbladder removed, hysterectomy and 2 prior C-sections. No cough, congestion, chest pain, shortness of breath. Related Data Home Medications Medication Instructions Recorded Confirmed multivitamin 1 tablet PO DAILY 04/15/23 10/10/23 Allergies Allergy/AdvReac Type Severity Reaction Status Date / Time coconut Allergy Severe ANPHYLAXIS Verified 11/22/23 12:29 shellfish derived Allergy Severe ANPHYLAXIS Verified 11/22/23 12:29 Penicillins Allergy Mild Rash AN Verified 11/22/23 12:29 latex Allergy Unknown SKIN Verified 11/22/23 12:29 IRRITATION propoxyphene AdvReac Nausea and Verified 11/22/23 12:29 [From Darvocet-N] Vomiting Wasp Allergy Unknown RASH, HIVES Uncoded 09/12/23 09:18 Review of Systems Review of Systems: All systems reviewed & are unremarkable except as noted in HPI and below PMFSH Past Medical History Medical History Arthritis Deep vein blood clot of left lower extremity Deep vein blood clot of right lower extremity Generalized headaches Inflammatory arthritis Lumbar degenerative disc disease Osteoarthritis of both knees Plantar fasciitis Trochanteric bursitis of both hips Surgical History Surgical History deliv NOS-unsp H/O adenoidectomy H/O: hysterectomy History of carpal tunnel release of both wrists History of cholecystectomy History of hip surgery (~06/16/23) Rt - Bursectomy w/IT band release History of hip surgery (~09/01/23) Arthroscopic Left IT Band Release w/ Bursectomy History of tonsillectomy Family History Family History Father Heart disease Acute myocardial infarction Grandparent Acute myocardial infarction Grandparent Acute myocardial infarction Grandparent Cancer Social History Social History Smoking status: Never smoker Alcohol intake: current Drinks per week: 1 Alcohol use details: 3 PER MONTH Substance use: never Substance use type: does not use Lack of Transportation: No Lack of Food: Never True Current Housing: I Have Housing Concerned About Future Housing: No Difficulty Paying Gas/Electric Bills: No Difficulty Paying for Meds: No Currently Unemployed: No Education: High School Diploma/GED Difficulty w/ Childcare or Family Care: No Living arrangements: with family Spiritual care concerns: No Exam Narrative: GENERAL: Well-appearing, well-nourished, and in no acute distress. HEAD: Normocephalic, atraumatic. EYES: PERRLA and EOMI. ENT: Nares clear. Mucous membranes moist. NECK: Supple. CHEST: Clear to auscultation. No respiratory distress. HEART: Regular rate and rhythm. Normal peripheral pulses. ABDOMEN: Soft, Right lower quadrant tenderness, no guarding present. No CVA tenderness bilaterally. EXTREMITIES: Normal range of motion. No edema. SKIN: Warm, dry, no rash. NEURO: No focal deficits. Alert and oriented x3.
[2023-11-22 12:43] LABS: Basophils Absolute Auto 0.1 K/mm3 (0.0-0.1); Basophils Percent Auto 0.6 % (0.2-1.2); Eosinophils Absolute Auto 0.2 K/mm3 (0-0.3); Eosinophils Percent Auto 1.9 % (0-4.4); Hematocrit 44.1 % (37.0-47.0); Hemoglobin 14.8 g/dL (12.0-15.0); Immature Granulocyte Absolute 0.02 K/mm3 (0.00-0.031); Immature Granulocyte Percent A 0.2 % (0-0.5); Lymphocytes Absolute Auto 2.43 K/mm3 (0.9-3.2); Lymphocytes Percent Auto 28.9 % (18.3-44.2); Mean Corpuscular HGB Conc 33.6 g/dl (32-36); Mean Corpuscular Hemoglobin 30.2 pg (26-34); Mean Platelet Volume 8.4 fl (7.4-10.4); Monocytes Absolute Auto 0.5 K/mm3 (0.1-0.6); Monocytes Percent Auto 5.9 % (2.6-8.5); Neutrophils Absolute Auto 5.3 K/mm3 (1.3-6.7); Neutrophils Percent Auto 62.5 % (45.5-73.1); Platelet Count Result 327 k/mm3 (150-375); Red Cell Distribution Width 12.8 % (11.5-14.5); White Blood Count 8.4 K/mm3 (4.5-10.0)
[2023-11-22 12:55] LABS: Prothrombin Time 13.2 Seconds (11.1-14.7)
[2023-11-22 12:56] LABS: Partial Thromboplastin Time 29.1 Seconds (22.3-36.8)
[2023-11-22 13:00] LABS: Alanine Aminotransferase 30 U/L (6-35); Albumin Level 4.3 g/dL (3.5-5.1); Alkaline Phosphatase 91 U/L (38-126); Anion Gap 6 mmol/L (4-12); Aspartate Amino Transferase 23 U/L (14-36); Bilirubin,Total 0.4 mg/dL (0.2-1.3); Blood Urea Nitrogen 10 mg/dL (7-17); Calcium 9.4 mg/dL (8.4-10.2); Carbon Dioxide 23 mmol/L (22-30); Chloride 112 mmol/L (98-107); Estimated CRCL calculation 97 ml/min; Estimated Glomerular Filt Rate > 60; Glucose 92 mg/dL (65-110); Lipase 77 U/L (23-300); Magnesium 2.1 mg/dL (1.6-2.3); Potassium 3.9 mmol/L (3.4-5.0); Sodium 141 mmol/L (137-145)
[2023-11-22 13:16] LABS: CRP < 0.5 mg/dL (<1.0)
[2023-11-22 14:26] LABS: Appearance Urine Cloudy (Clear); Bacteria Urine None Seen /hpf; Bilirubin Urine Negative (Negative); Blood Urine Negative (Negative); Color Urine Yellow (Yellow); Glucose Urine UA Negative (Negative); Ketones Urine Negative (Negative); Leukocyte Esterase Ur Negative LEU/UL (Negative); Nitrate Urine Negative (Negative); Non Pathogenic Casts 0-2; Protein Urine Negative (Negative); RBC Urine 0-2 /hpf (0-2); Squamous Epithelial Cell Urine Occasional /hpf (Few); Urobilinogen Urine 0.2 mg/dL (<2.0); WBC Urine 0-5 /hpf (0-3); pH Urine 7.5 (5.0-9.0)
[2023-11-22 14:28] LABS: Add Urine Microscopic? YES; Specific Grav Ur 1.052 (1.001-1.035)
--- NOTE | 2023-11-22 15:19 | PM.IMHP ---
H&P: HPI History of Present Illness Date/Time: 11/22/23 15:19 Chief Complaint: acute appendicitis Narrative: The patient is a 53-year-old female presenting to the emergency department complaining of right lower quadrant abdominal pain. The patient reports that the pain has been present over the last 5 days or so. The patient reports the pain has always been located on the right lower side with radiation to her right flank. The patient reports that the pain has been constant and dull. The patient reports the pain is not really worsened over that time span. The patient reports subjective fevers, poor appetite, nausea, and diarrhea. The patient denies similar episodes. Review of Systems Review of Systems: All systems reviewed & are unremarkable except as noted in HPI and below PMFSH Past Medical History Medical History Arthritis Deep vein blood clot of left lower extremity Deep vein blood clot of right lower extremity Generalized headaches Inflammatory arthritis Lumbar degenerative disc disease Osteoarthritis of both knees Plantar fasciitis Trochanteric bursitis of both hips Surgical History Surgical History deliv NOS-unsp H/O adenoidectomy H/O: hysterectomy History of carpal tunnel release of both wrists History of cholecystectomy History of hip surgery (~06/16/23) Rt - Bursectomy w/IT band release History of hip surgery (~09/01/23) Arthroscopic Left IT Band Release w/ Bursectomy History of tonsillectomy Family History Family History Father Heart disease Acute myocardial infarction Grandparent Acute myocardial infarction Grandparent Acute myocardial infarction Grandparent Cancer Social History Social History Smoking status: Never smoker Alcohol intake: current Drinks per week: 1 Alcohol use details: 3 PER MONTH Substance use: never Substance use type: does not use Lack of Transportation: No Lack of Food: Never True Current Housing: I Have Housing Concerned About Future Housing: No Difficulty Paying Gas/Electric Bills: No Difficulty Paying for Meds: No Currently Unemployed: No Education: High School Diploma/GED Difficulty w/ Childcare or Family Care: No Living arrangements: with family Spiritual care concerns: No Meds Home Medications and Allergies Home Medications Medication Instructions Recorded Confirmed Type multivitamin 1 tablet PO DAILY 04/15/23 10/10/23 History enoxaparin 30 mg/0.3 mL 30 mg (0.3 mL) subcut Q12H 2 weeks 09/02/23 10/10/23 Rx subcutaneous syringe (Lovenox) #8.4 mL topiramate 50 mg tablet 50 mg PO DAILY #90 tabs 09/05/23 10/10/23 Rx Allergies Allergy/AdvReac Type Severity Reaction Status Date / Time coconut Allergy Severe ANPHYLAXIS Verified 11/22/23 12:29 shellfish derived Allergy Severe ANPHYLAXIS Verified 11/22/23 12:29 Penicillins Allergy Mild Rash AN Verified 11/22/23 12:29 latex Allergy Unknown SKIN Verified 11/22/23 12:29 IRRITATION propoxyphene AdvReac Nausea and Verified 11/22/23 12:29 [From [facility]] Vomiting Wasp Allergy Unknown RASH, HIVES Uncoded 09/12/23 09:18 Vital Signs Vital Signs - 24 hr 11/22/23 12:25 Temperature 36.7 C Pulse Rate 75 Respiratory Rate 19 Blood Pressure 145/87 H Pulse Oximetry 99 Exam Const: General: cooperative, no acute distress, uncomfortable and obese HENMT: Head: normal to inspection, normocephalic and atraumatic Eyes: General: appearance normal, both eyes and all related structures Neck: Neck: normal visual inspection, full ROM and no lymphadenopathy Resp: Auscultation: clear to auscultation bilaterally Cardio: Rate: regular rate Rhythm: regular rhythm GI: Inspection: normal to inspection, distended and obesit
--- NOTE | 2023-11-22 15:24 | WPDHPUPDATE1 ---
History and Physical Update Update Date/Time: 11/22/23 15:24 History and Physical has been reviewed, including an updated exam of the patient. There are NO changes in the patient's condition. Risks, benefits, and alternatives have been discussed and questions answered. Patient agrees to proceed with procedure.
[2023-11-22] MEDS: LACTATED RINGERS 1,000 ML 30 ML IV CONT ×2 (15:40→18:30)
--- NOTE | 2023-11-22 16:25 | WPDANESEPPF ---
Anes - Initial Pre Proc Eval Procedure: Operation Date: 11/22/23 17:00 Proposed Procedures p Laparoscopic Appendectomy - Shiloh Virk MD Date/Time: 11/22/23 16:25 Surgeon: Shiloh Virk MD Pre Op Diagnosis: right sided abd pain Patient Data Age: 53 Gender: F Height: 1.73 m Weight: 124 kg Last Vital Signs Temp 36.2 C L 11/22/23 15:43 Pulse 73 11/22/23 15:43 Resp 14 11/22/23 15:43 BP 163/95 H 11/22/23 15:43 Pulse Ox 100 11/22/23 15:43 Allergies Allergy/AdvReac Type Severity Reaction Status Date / Time coconut Allergy Severe ANPHYLAXIS Verified 11/22/23 12:29 shellfish derived Allergy Severe ANPHYLAXIS Verified 11/22/23 12:29 Penicillins Allergy Mild Rash AN Verified 11/22/23 12:29 latex Allergy Unknown SKIN Verified 11/22/23 12:29 IRRITATION propoxyphene AdvReac Nausea and Verified 11/22/23 12:29 [From [facility]] Vomiting Wasp Allergy Unknown RASH, HIVES Uncoded 09/12/23 09:18 Home Medications Medication Instructions Recorded Confirmed Type multivitamin 1 tablet PO DAILY 04/15/23 10/10/23 History enoxaparin 30 mg/0.3 mL 30 mg (0.3 mL) subcut Q12H 2 weeks 09/02/23 10/10/23 Rx subcutaneous syringe (Lovenox) #8.4 mL topiramate 50 mg tablet 50 mg PO DAILY #90 tabs 09/05/23 10/10/23 Rx Laboratory Tests 11/22/23 11/22/23 12:38 14:15 WBC 8.4 K/mm3 (4.5-10.0) RBC 4.90 M/mm3 (4.2-5.4) Hgb 14.8 g/dL (12.0-15.0) Hct 44.1 % (37.0-47.0) MCV 90.0 fl (80-100) MCH 30.2 pg (26-34) MCHC 33.6 g/dl (32-36) RDW 12.8 % (11.5-14.5) Plt Count 327 k/mm3 (150-375) MPV 8.4 fl (7.4-10.4) Immature Gran % (Auto) 0.2 % (0-0.5) Neut % (Auto) 62.5 % (45.5-73.1) Lymph % (Auto) 28.9 % (18.3-44.2) [place] % (Auto) 5.9 % (2.6-8.5) Eos % (Auto) 1.9 % (0-4.4) Baso % (Auto) 0.6 % (0.2-1.2) Lymph # (Auto) 2.43 K/mm3 (0.9-3.2) [place] # (Auto) 0.5 K/mm3 (0.1-0.6) Eos # (Auto) 0.2 K/mm3 (0-0.3) Baso # (Auto) 0.1 K/mm3 (0.0-0.1) Abs Immat Gran (auto) 0.02 K/mm3 (0.00-0.031) Absolute Neuts (auto) 5.3 K/mm3 (1.3-6.7) Absolute Nucleated RBC 0.000 K/mm3 (0.0-0.012) Nucleated RBC % 0.0 % (0.0-0.2) PT 13.2 Seconds (11.1-14.7) INR 1.0 APTT 29.1 Seconds (22.3-36.8) Sodium 141 mmol/L (137-145) Potassium 3.9 mmol/L (3.4-5.0) Chloride 112 H mmol/L (98-107) Carbon Dioxide 23 mmol/L (22-30) Anion Gap 6 mmol/L (4-12) BUN 10 mg/dL (7-17) Creatinine 0.80 mg/dL (0.7-1.0) Estim Creat Clear Calc 97 ml/min Estimated GFR > 60 (59 - ) Glucose 92 mg/dL (65-110) Calcium 9.4 mg/dL (8.4-10.2) Magnesium 2.1 mg/dL (1.6-2.3) Total Bilirubin 0.4 mg/dL (0.2-1.3) AST 23 U/L (14-36) ALT 30 U/L (6-35) Alkaline Phosphatase 91 U/L (38-126) C-Reactive Protein < 0.5 mg/dL (<1.0) Total Protein 7.0 g/dL (6.3-8.2) Albumin 4.3 g/dL (3.5-5.1) Lipase 77 U/L (23-300) Urine Color Yellow (Yellow) Urine Appearance Cloudy H (Clear) Urine pH 7.5 (5.0-9.0) Ur Specific [place] 1.052 H (1.001-1.035) Urine Protein Negative mg/dL (Negative) Urine Glucose (UA) Negative mg/dL (Negative) Urine Ketones Negative mg/dL (Negative) Ur Blood (Man) Negative (Negative) Urine Nitrate Negative (Negative) Urine Bilirubin Negative (Negative) Urine Urobilinogen 0.2 mg/dL (<2.0) Leukocyte Esterase Rfl Negative RISHABH/UL (Negative) Urine RBC 0-2 /hpf (0-2) Urine WBC 0-5 /hpf (0-3) Ur Squamous Epith Cells Occasional /hpf (Few) Urine Bacteria None seen /hpf Urine Casts 0-2 Patient hx
[2023-11-22] MEDS: SCOPOLAMINE 1 MG PATCH 1 PATCH TRANSDERM (16:35)
[2023-11-22] MEDS: metroNIDAZOLE 500 MG/ISO 100ML 500 MG/100 ML BAG 100 MG IVPB (17:05)
[2023-11-22] MEDS: BUPIVACAINE/EPINEPHRINE 0.5% 10 ML VIAL 30 ML INFILTRATE (18:16)
--- NOTE | 2023-11-22 18:27 | W.PM.PROC2 ---
Procedure Note - Detailed Date of Procedure 11/22/23 Pre-op Diagnosis Acute appendicitis Post-op Diagnosis Same Procedure Performed laparoscopic appendectomy with extensive lysis of adhesions, kocherization of the cecum requiring approximately 45 minutes Surgeon Shiloh Virk MD Anesthesia General Indications 53-year-old female presenting to the emergency department complaining of right lower quadrant abdominal pain. Workup, including imaging, significant for acute appendicitis. Findings Extensive lower midline adhesions from previous hysterectomy, , retrocecal acute appendicitis with no evidence of perforation Description of Procedure The patient was taken to the operating room and placed in the supine position. After adequate induction of general anesthesia, the patient was prepped and draped in the normal sterile fashion. A time-out was then done to verify the patient's identity, as well as the procedure being performed. I began by making a 5 mm incision in the infraumbilical region, through this a Veress needle was placed in the peritoneal cavity. CO2 gas was then insufflated and after adequate pneumoperitoneum was achieved the Veress needle was removed. Then placed a 5 mm Optiview trocar under direct visualization into the peritoneal cavity. I then insufflated through this trocar site and the endoscope was placed into the trocar. There was noted to be lower midline adhesions from previous surgery. I was able to place a 12 mm port in the left lower abdomen. Using these 2 trocar sites I was able to take down these adhesions sharply with the laparoscopic scissors. Under direct visualization, I placed a further 5 mm suprapubic port. At this point identified the cecum, I retracted the cecum both medially and superiorly allowing me to expose the appendix. The appendix was noted to be retrocecal and required a Heena maneuver to expose the appendix. This was done by taking down the white line of Toldt to allow medialization of the cecum. The appendix was noted to be very dilated and inflamed. The appendix was adherent to the retroperitoneum and I was able to bluntly dissect the appendix from these adhesions. I then was able to locate the base of the appendix with the cecum. I created a window with the [place] dissector between the appendix itself and the mesoappendix. I then transected the mesoappendix with a white vascular staple load. The Endo-MIKE was then reloaded with a blue staple load and I transected the base of the appendix. Once the specimen was completely detached, an endo-pouch was placed into the 12 mm port site and the specimen was removed through the endo-pouch. The appendiceal specimen will be sent to pathology for further review. I then copiously irrigated the right lower quadrant. Hemostasis was noted at both staple lines no other pathology was seen in this area. I then moved the camera to the suprapubic port to check our its port of entry. No iatrogenic injury or other pathology was noted in the upper abdomen. I then closed the 12 mm port site with a Inocencio code and 0 Vicryl suture under direct visualization. At this point, the abdomen was desufflated and all ports were removed. All port sites were closed with 4 Monocryl subcuticular suture. Dermabond was placed on all wounds. The patient tolerated the procedure well and was extubated in the operating room postop. She will be sent to the recovery room in stable condition. Please note that this particular case was approximately double the complexity of an average appendectomy. This was secondary to the patient's body habitus, lower midline adhesions, and retrocecal nature of her appendix. The case took 60 minutes which is more than double the average time of my normal appendectomy. Estimated Blood Loss 10 Drains No Packing No Pathology Yes Complications No immediate complications Condition Stable Disposition PACU [facility] Surgery - Charge Forward
[2023-11-22] MEDS: fentaNYL CITRATE INJ (*CRX) 100 MCG/2 ML VIAL 25 MCG IV PUSH ×8 (18:48→19:40)
[2023-11-22] MEDS: ONDANSETRON INJ 4 MG/2 ML VIAL IV PUSH ×2 (19:06→23:32)
[2023-11-22] MEDS: diphenhydrAMINE HCl INJ 50 MG/ML VIAL 25 MG IV PUSH (19:40)
--- NOTE | 2023-11-22 20:06 | SUR.PHASEI ---
1945: SPOKE W/ DR. ORTEGA. PT C/O INTRACTABLE PAIN RATED AT 9/10. PT SOMNOLENT AND UNABLE TO WEAN OFF O2 @ 2LPM. INTRACTABLE NAUSEA DESPITE SEVERAL ANTIEMETICS. VSS. DECISION TO ADMIT. SPOKE W/ HOUSE SUP AND SPOUSE. SPOUSE BROUGHT TO BEDSIDE. WILL FAXE REPORT ONCE ROOM OBTAINED
[2023-11-22] MEDS: HYDROcodone/acetaminophen (*CRX) 5-325 MG TABLET 1 TAB PO (23:19)
[2023-11-23 01:12] VITALS: BP 126/63; PULSE 70; RESP 18; TEMP 36.3; O2SAT 92
[2023-11-23] MEDS: HYDROcodone/acetaminophen (*CRX) 5-325 MG TABLET 1 TAB PO ×2 (03:19→08:38)
[2023-11-23 05:12] VITALS: BP 113/55; PULSE 60; RESP 18; TEMP 36.4; O2SAT 95
[2023-11-23 05:26] LABS: Hematocrit 41.7 % (37.0-47.0); Hemoglobin 13.6 g/dL (12.0-15.0); Mean Corpuscular HGB Conc 32.6 g/dl (32-36); Mean Corpuscular Hemoglobin 30.3 pg (26-34); Mean Corpuscular Volume 92.9 fl (80-100); Mean Platelet Volume 8.6 fl (7.4-10.4); Platelet Count Result 301 k/mm3 (150-375); Red Blood Count 4.49 M/mm3 (4.2-5.4); Red Cell Distribution Width 12.8 % (11.5-14.5); White Blood Count 11.6 K/mm3 (4.5-10.0)
[2023-11-23 05:38] LABS: Anion Gap 3 mmol/L (4-12); Blood Urea Nitrogen 9 mg/dL (7-17); Calcium 8.6 mg/dL (8.4-10.2); Carbon Dioxide 24 mmol/L (22-30); Chloride 110 mmol/L (98-107); Estimated CRCL calculation 110 ml/min; Estimated Glomerular Filt Rate > 60; Glucose 132 mg/dL (65-110); Potassium 4.1 mmol/L (3.4-5.0); Sodium 137 mmol/L (137-145)
[2023-11-23] MEDS: PANTOPRAZOLE 40 MG TABLET PO (08:39)
[2023-11-23] MEDS: ENOXAPARIN 40 MG/0.4 ML SYRINGE SUB-Q (08:40)
--- NOTE | 2023-11-23 12:04 | PM.PNGS ---
Progress Note: A&P Assessment and Plan (1) Acute appendicitis: Qualifiers: Acute appendicitis type: other Qualified Code(s): K35.890 - Other acute appendicitis without perforation or gangrene Code(s): K35.80 - Unspecified acute appendicitis Status: Acute Assessment and Plan: will add Toradol for pain control, encourage OOB, ambulation, home c po analgesia if pain better controlled later today Subjective Subjective Date/Time Seen: 11/23/23 12:04 Interval history: c/o severe L sided pain kiana c movt, keon diet Review of Systems Review of Systems: All systems reviewed & are unremarkable except as noted in HPI and below Exam Const: General: cooperative, comfortable and no acute distress Resp: Auscultation: clear to auscultation bilaterally Cardio: Rate: regular rate Rhythm: regular rhythm GI: Inspection: normal to inspection, distended and incision GI Palp: Yes abdominal tenderness, Yes Soft to palpation and Yes Tenderness to palpation present (GI) Objective Data Vital Signs Vital Signs: Vital Signs - 24 hr 11/22/23 12:25 11/22/23 12:46 11/22/23 14:04 Temperature 36.7 C Pulse Rate 75 70 71 Respiratory Rate 19 22 H 21 H Blood Pressure 145/87 H 152/91 H Pulse Oximetry 99 100 100 Oxygen Delivery Oxygen Flow Rate 11/22/23 15:43 11/22/23 18:30 11/22/23 18:45 Temperature 36.2 C L 36.2 C L Pulse Rate 73 64 63 Respiratory Rate 14 20 18 Blood Pressure 163/95 H 123/69 129/76 Pulse Oximetry 100 97 100 Oxygen Delivery Simple Face Mask Simple Face Mask Oxygen Flow Rate 8 8 11/22/23 19:00 11/22/23 19:15 11/22/23 19:30 Temperature Pulse Rate 70 67 67 Respiratory Rate 14 12 12 Blood Pressure 116/63 116/81 134/78 Pulse Oximetry 100 98 98 Oxygen Delivery Simple Face Mask Nasal Cannula Nasal Cannula Oxygen Flow Rate 8 3 2 11/22/23 19:45 11/22/23 20:00 11/22/23 20:15 Temperature Pulse Rate 62 60 63 Respiratory Rate 12 12 12 Blood Pressure 115/78 114/79 112/74 Pulse Oximetry 98 98 98 Oxygen Delivery Nasal Cannula Nasal Cannula Nasal Cannula Oxygen Flow Rate 2 2 2 11/22/23 20:30 11/22/23 21:00 11/22/23 20:55 Temperature 36.4 C L 36.3 C L Pulse Rate 63 66 Respiratory Rate 12 20 Blood Pressure 118/74 126/64 Pulse Oximetry 98 98 96 Oxygen Delivery Nasal Cannula Nasal Cannula Oxygen Flow Rate 2 2 11/22/23 21:23 11/22/23 23:40 11/23/23 01:12 Temperature 36.4 C L 36.3 C L Pulse Rate 65 70 Respiratory Rate 20 18 Blood Pressure 124/70 126/63 Pulse Oximetry 97 100 92 Oxygen Delivery Room Air Oxygen Flow Rate 11/23/23 05:12 11/23/23 08:44 Temperature 36.4 C Pulse Rate 60 Respiratory Rate 18 Blood Pressure 113/55 L Pulse Oximetry 95 Oxygen Delivery Room Air Oxygen Flow Rate Intake/Output Intake/Output: Intake & Output 11/20/23 11/21/23 11/22/23 11/23/23 23:59 23:59 23:59 23:59 Intake Total 650 195 Balance 650 195 Meds/Results Medications: Active Medications Generic Name Dose Route Start Last Admin Trade Name Freq PRN Reason Stop Dose Admin Acetaminophen 650 mg 11/22/23 20:38 Acetaminophen 325 Mg Tablet PO Q6H PRN Mild Pain (1-3) or Fever Hydrocodone Bitart/Acetaminophen 1 tab 11/22/23 20:38 11/23/23 08:38 Hydrocodone/Acetaminophen (*Crx) 5-325 Mg Tablet PO 1 tab Q4H PRN Administration Pain Rated 4-6 Diphenhydramine HCl 25 mg 11/22/23 20:38 Diphenhydramine Hcl Cap 25 Mg Capsule PO Q6H PRN Itching Enoxaparin Sodium 40 mg 11/23/23 09:00 11/23/23 08:40 Enoxaparin 40 Mg/0.4 Ml Syringe SUB-Q 40 mg DAILY SUKHJINDER Administration Ondansetron HCl 4 mg 11/22/23 20:38 11/22/23 23:32 Ondansetron Inj 4 Mg/2 Ml Vial IV PUSH 4 mg Q4H PRN Administration Nausea And Vomiting Pantoprazole Sodium 40 mg 11/23/23 09:00 11/23/23 08:39 Pantoprazole 40 Mg Tablet PO 40 mg QAM SUKHJINDER Administration Radiology Results: ITS Impre
[2023-11-23] MEDS: KETOROLAC 30 MG/ML VIAL (*BKC) IV PUSH ×2 (12:38→18:15)
[2023-11-23 21:23] VITALS: BP 116/71; PULSE 63; RESP 16; TEMP 36.4; O2SAT 97
[2023-11-24] MEDS: KETOROLAC 30 MG/ML VIAL (*BKC) IV PUSH ×2 (05:34)
[2023-11-24 05:42] VITALS: BP 122/78; PULSE 60; RESP 18; TEMP 36.5; O2SAT 95
[2023-11-24 08:00] VITALS: O2SAT 93
[2023-11-24] MEDS: ENOXAPARIN 40 MG/0.4 ML SYRINGE SUB-Q (08:59)
[2023-11-24] MEDS: PANTOPRAZOLE 40 MG TABLET PO (08:59)
--- NOTE | 2023-11-24 09:36 | PM.DS ---
DS: Admitting Diagnosis Discharge Date 11/24/2023 Admitting Diagnosis acute appendicitis DS: Discharge Diagnosis Discharge Diagnosis (1) Acute appendicitis: Qualifiers: Acute appendicitis type: other Qualified Code(s): K35.890 - Other acute appendicitis without perforation or gangrene Code(s): K35.80 - Unspecified acute appendicitis Status: Acute Assessment and Plan: status post appy, routine postoperative care, home with p.o. analgesia and Colace, follow-up 2 weeks DS: Summary Hospital Course Reason for hospitalization: acute appendicitis Hospital Course: The patient is a 53 year female presenting to the hospital complaining of right-sided abdominal pain. Workup, including imaging, was significant for acute appendicitis. Given these findings, the patient was admitted to the surgical service and started on antibiotics. Upon evaluation, it was decided to proceed with urgent appendectomy. Patient was taken to the operating room and laparoscopic appendectomy was performed. Please see full operative report for details procedure. Postoperatively, the patient did well and was transferred back to surgical floor. On postoperative day 1. , the patient was complaining of significant incisional pain in the left lower abdomen. Toradol was added to pain regimen and this seemed to help. To tolerate a regular diet and was up and ambulating better after the medication. On postoperative day 2. , the patient reports she feels much improved. She is tolerating a diet and up and moving without issue. She will be sent home with p.o. analgesia Colace. She will follow-up with me in 2 weeks. Status at Discharge Functional status at discharge: independent ambulation Overall status at discharge: patient is progressing back to baseline Time Spent with Patient Time attestation: Total time spent providing and/or coordinating discharge services: Time spent: Less than 30 minutes Exam Const: General: cooperative, comfortable and no acute distress Resp: Auscultation: clear to auscultation bilaterally Cardio: Rate: regular rate Rhythm: regular rhythm GI: Inspection: normal to inspection, distended and incision GI Palp: Yes abdominal tenderness DS: Data Data Completed and Pending Pending studies at discharge: Pending at discharge 11/22/23 17:30 Surgical [PTH] Routine Discharge Plan Discharge Attending physician on discharge: Shiloh Virk Discharging Clinician: Shiloh Virk Anticipated Discharge Date/Time: 11/24/23 11:00 Patient Disposition: Home, Self-Care Activity: may shower and as tolerated Diet: as tolerated Wound Care Instructions: incision open to air Discharge Instructions: DISCHARGE INSTRUCTION SHEET FOR HERNIA, GALLBLADDER AND APPENDIX SURGERIES DR. VIRK PATIENT TO TAKE HOME 1. May shower in 24 hours, no soaking in bath x 2weeks. 2. Call office for: Wound increasingly painful or bleeding Vomiting Fever of greater than 101 degrees 3. If no bowel movement for three days, take 1 oz. (30 ml) Milk of Magnesia or MiraLax 17g 1 to 2 times daily. 4. No heavy lifting > 10-15 pounds x 6 weeks for hernia repairs and 2 weeks for laparoscopic cholecystectomy or appendectomy. 5. No driving for 3 days or while taking narcotic pain medications. 6. Ice to surgical site for 48 hours (30 min on, then 30 min off). 7. Up walking 10-30 minutes three times per day. 8. Resume previous home medications. 9. Follow-up 10-14 days in office for wound check or as previously scheduled. ([phone]) 10. Oral pain medications prescription to be sent to pharmacy. Take Tylenol 500mg every 6 hours and Ibuprofen 600mg every 6 hours for the first 2 days, then as needed. 11. NUTRITION: Start out by drinking fluids and increase your diet as tolerated. If you experience nausea, try dry toast, crackers, and 7-UP. If na
== END 2023-11-24 11:09 | disposition home or self-care (01) ==
LOC: ANHED 15:08 → ANHSURGERY 15:12 → ANH2MED 20:51
PROVIDERS: Admitting Provider Surgery; Emergency Provider Student in an Organized Health Care Education/Training Program; PCP Family Medicine; Visit Provider Surgery
PROC: 0DTJ4ZZ Resection of Appendix, Percutaneous Endoscopic Approach (ICD-10-PCS; CPT 44970; principal; 2023-11-22 17:00)
DX: K35.32 Acute appendicitis with perforation, localized peritonitis, and gangrene, without abscess (principal); K66.0 Peritoneal adhesions (postprocedural) (postinfection); Z86.718 Personal history of other venous thrombosis and embolism
CPT/HCPCS: 44970; 36415; 74177; 80048; 80053; 81001; 83690; 83735; 85025; 85027; 85610; 85730; 86140; 88304; 96361; 96365; 96372; 96374; 96375; 96376; 99285; A9270; G0378; J0696; J1100; J1170; J1200; J1650; J1836; J1885; J2250; J2405; J2704; J3010; J7030; J7120; Q9967

== ENCOUNTER 2023-11-26 20:43 | Observation (INO) | payer OTHER, SELFPAY ==
--- NOTE | ~2023-11-26 | CT_ITS ---
EXAMINATION: CT abdomen pelvis w con DATE: 11/26/2023 23:27 INDICATION: Right and left lower quadrant abdominal pain post appendectomy TECHNIQUE: Computed tomography (CT) of the abdomen and pelvis was performed with 100 CC Omnipaque 350 intravenous contrast. Automated exposure control and iterative reconstruction technique were employe d. Exam dose: 1596.51 mGy-cm total exam DLP. COMPARISON: 11/22/2023 CT abdomen pelvis FINDINGS: Normal heart size. No pericardial or pleural effusion. The lung bases are clear. Status post cholecystectomy. The liver, spleen, pancreas, and adrenal glands and kidneys are unremark able other than 8mm left renal cyst. There is atherosclerotic calcification but normal caliber of the abdominal aorta. No intraperitoneal or retroperitoneal or pelvic mass lesion or adenopathy or ascites. Status post hysterectomy. The urinary bladder is evacuated. Status post appendectomy. There is fat stranding in the pericecal area, likely residual from recent a cute appendicitis and postsurgical change. No abscess cavity is identified. No bowel obstruction. There is mild subcutaneous emphysema of the anterior abdominal wall, also likely postoperative. IMPRESSION: Postoperative and residual inflammatory changes from recent appendicitis Reviewed, dictated and finalized at [facility]. Reviewed, dictated and finalized at [facility]. IMPRESSION: Postoperative and residual inflammatory changes from recent append icitis
[2023-11-26 21:04] VITALS: BP 137/96; PULSE 72; RESP 20; TEMP 36.7; O2SAT 99
[2023-11-26 21:15] LABS: Basophils Absolute Auto 0.1 K/mm3 (0.0-0.1); Basophils Percent Auto 0.6 % (0.2-1.2); Eosinophils Absolute Auto 0.5 K/mm3 (0-0.3); Hematocrit 42.6 % (37.0-47.0); Immature Granulocyte Absolute 0.02 K/mm3 (0.00-0.031); Immature Granulocyte Percent A 0.3 % (0-0.5); Lymphocytes Absolute Auto 2.24 K/mm3 (0.9-3.2); Mean Corpuscular HGB Conc 32.9 g/dl (32-36); Mean Corpuscular Hemoglobin 30.1 pg (26-34); Mean Corpuscular Volume 91.6 fl (80-100); Mean Platelet Volume 8.3 fl (7.4-10.4); Monocytes Absolute Auto 0.4 K/mm3 (0.1-0.6); Monocytes Percent Auto 5.6 % (2.6-8.5); Neutrophils Absolute Auto 4.4 K/mm3 (1.3-6.7); Neutrophils Percent Auto 57.5 % (45.5-73.1); Platelet Count Result 298 k/mm3 (150-375); Red Blood Count 4.65 M/mm3 (4.2-5.4); Red Cell Distribution Width 12.9 % (11.5-14.5); White Blood Count 7.7 K/mm3 (4.5-10.0)
[2023-11-26 21:34] LABS: Alanine Aminotransferase 166 U/L (6-35); Albumin Level 4.1 g/dL (3.5-5.1); Alkaline Phosphatase 134 U/L (38-126); Anion Gap 6 mmol/L (4-12); Aspartate Amino Transferase 138 U/L (14-36); Bilirubin,Total 0.7 mg/dL (0.2-1.3); Blood Urea Nitrogen 9 mg/dL (7-17); Calcium 9.2 mg/dL (8.4-10.2); Carbon Dioxide 25 mmol/L (22-30); Chloride 109 mmol/L (98-107); Estimated CRCL calculation 95 ml/min; Estimated Glomerular Filt Rate > 60; Glucose 103 mg/dL (65-110); Lipase 45 U/L (23-300); Potassium 4.2 mmol/L (3.4-5.0); Sodium 140 mmol/L (137-145)
[2023-11-26 23:20] LABS: Appearance Urine Cloudy (Clear); Bacteria Urine None Seen /hpf; Bilirubin Urine Negative (Negative); Blood Urine Negative (Negative); Color Urine Yellow (Yellow); Glucose Urine UA Negative (Negative); Ketones Urine Negative (Negative); Leukocyte Esterase Ur Trace LEU/UL (Negative); Nitrate Urine Negative (Negative); Non Pathogenic Casts 0-2; Protein Urine Negative (Negative); RBC Urine 0-2 /hpf (0-2); Specific Grav Ur 1.021 (1.001-1.035); Squamous Epithelial Cell Urine Few /hpf (Few); WBC Urine 0-5 /hpf (0-3); pH Urine 7.5 (5.0-9.0)
[2023-11-26 23:51] LABS: Add Urine Microscopic? YES
--- NOTE | 2023-11-26 23:53 | ED.ABDPAIN ---
HPI - Abdominal Pain General Chief Complaint: Abdominal Pain <YULISSA Garcia Last Filed: 11/27/23 01:54> Stated Complaint: abd pain <YULISSA Garcia Last Filed: 11/27/23 01:54> Time Seen by Provider: 11/26/23 23:53 <YULISSA Garcia Last Filed: 11/27/23 01:54> History of Present Illness HPI narrative: 53-year-old female with history of obesity presents to emergency department for left lower quadrant abdominal pain. Patient was seen in our emergency department on 11/22/2023 for right lower quadrant abdominal pain. She was found have acute appendicitis and was taken to the OR in the evening of 11/22/2023 for an appendectomy. Per operative notes, the patient tolerated procedure well and was extubated in the operating room. The case was complicated due to patient's body habitus, lower midline adhesion and retrocecal nature of her appendix. She was admitted to the surgical floor and observed until she was discharged home on 11/24/2023 with Colace and [place]. Patient states she has been taking her [place] without improvement in her pain. She states the pain is in her left lower quadrant and radiates to her side. She states that is gone significantly worsens she was discharged. She denies fever, nausea vomiting, cough or congestion, chest pain or shortness of breath, dysuria or hematuria. <YULISSA Garcia Last Filed: 11/27/23 01:54> Related Data Home Medications: Home Medications Medication Instructions Recorded Confirmed multivitamin 1 tablet PO DAILY 04/15/23 11/22/23 <YULISSA Garcia Last Filed: 11/27/23 01:54> Allergies/Adverse Reactions: Allergies Allergy/AdvReac Type Severity Reaction Status Date / Time coconut Allergy Severe ANPHYLAXIS Verified 11/22/23 12:29 shellfish derived Allergy Severe ANPHYLAXIS Verified 11/22/23 12:29 Penicillins Allergy Mild Rash AN Verified 11/22/23 12:29 INFANT latex Allergy Unknown SKIN Verified 11/22/23 12:29 IRRITATION propoxyphene AdvReac Nausea and Verified 11/22/23 12:29 [From [facility]] Vomiting Wasp Allergy Unknown RASH, HIVES Uncoded 09/12/23 09:18 <Jennifer Crews PA-C - Last Filed: 11/27/23 01:54> Review of Systems Review of Systems: CONSTITUTIONAL: Denies fever, chills, or sweats. EYES: Denies visual changes, redness, or discharge. ENT: Denies rhinorrhea, congestion, sore throat, or otalgia. CARDIOVASCULAR: Denies chest pain, palpitations, or edema. RESPIRATORY: Denies cough or dyspnea. GASTROINTESTINAL: See HPI GENITOURINARY: Denies dysuria or hematuria. SKIN: Denies rash or itching. MUSCULOSKELETAL: Denies back pain, joint pain, or myalgia. NEUROLOGIC: Denies headache, numbness, or weakness. PSYCHIATRIC: Denies anxiety or depression. <Jennifer Crews PA-C - Last Filed: 11/27/23 01:54> [facility] Past Medical History Medical History: Medical History Arthritis Deep vein blood clot of left lower extremity Deep vein blood clot of right lower extremity Generalized headaches Inflammatory arthritis Lumbar degenerative disc disease Osteoarthritis of both knees Plantar fasciitis Trochanteric bursitis of both hips <Jennifer Crews PA-C - Last Filed: 11/27/23 01:54> Surgical History Surgical History: Surgical History deliv NOS-unsp H/O adenoidectomy H/O: hysterectomy History of carpal tunnel release of both wrists History of cholecystectomy History of hip surgery (~06/16/23) Rt - Bursectomy w/IT band release History of hip surgery (~09/01/23) Arthroscopic Left IT Band Release w/ Bursectomy History of tonsillectomy <Jennifer Crews PA-C - Last Filed: 11/27/23 01:54> Family History Family History: Family History Father Heart disease Acute myocardial infarcti
[2023-11-27] VITALS (8 sets, daily range): BP systolic 110–147; BP diastolic 56–92; PULSE 63–95; RESP 13–20; TEMP 36.5–36.7; O2SAT 94–100; BMI 42.5
[2023-11-27] MEDS: KETOROLAC 15 MG/ML VIAL (*BKC) IV PUSH (00:36)
[2023-11-27] MEDS: ONDANSETRON INJ 4 MG/2 ML VIAL IV PUSH ×2 (00:36→04:49)
[2023-11-27] MEDS: MORPHINE SULFATE (*CRX) 4 MG/ML INJ IV PUSH ×4 (01:28→11:54)
--- NOTE | 2023-11-27 04:34 | ADMGEN ---
This patient, Thuy Cordon, was admitted to 2 Medical Room 240-01. Patient/family oriented to hospital policies and general routines including ID bracelet, bed and alarms, visiting hours, pain management, procedures, bathroom and other care routines, personal items, smoking policy, room service/diet, and visiting hours. Information on how to activate the Rapid Response Team has been discussed. Patient/Family are encouraged to report perceived risks to care and to ask questions if they do not understand what they are told or what they should do.
[2023-11-27] MEDS: SODIUM CHLORIDE 0.9% IV 1,000 ML 125 ML IV CONT (04:50)
--- NOTE | 2023-11-27 08:46 | PM.IMHP ---
H&P: HPI History of Present Illness Date/Time: 11/27/23 08:46 Chief Complaint: Left lower quadrant pain Narrative: Patient is a 53-year-old woman who underwent laparoscopic appendectomy in the evening on 11/22/2023. Surgery was more difficult than usual including lysis of adhesions and mobilization of the cecum. Pathology showed subacute appendicitis with microscopic perforation. Following the surgery, the patient developed left lower quadrant abdominal pain. It was better when she was discharged 2 days later but then when she was home at worsened. It got so bad yesterday that she could not stand or move. She came to the emergency room and was evaluated. Evaluation in the emergency room shows left lower quadrant tenderness. There was mild right lower quadrant tenderness. Her white blood cell count was normal. Her liver function tests were mildly elevated with normal bilirubin. She had no fever. At home, she was having no nausea or vomiting. No constipation or diarrhea either were occurring. She had a CT scan in the emergency room which was negative except for expected inflammatory changes around the cecum consistent with recent appendectomy. Patient's pain was uncontrollable and she was placed in the hospital for observation. The pain is primarily in the left lower quadrant and this is the location of the tenderness. It radiates in a dermal lorraine fashion around to her back. She does have a history of being diagnosed with internal shingles by a physician [facility] at least 5 years ago. Review of Systems Review of Systems: All systems reviewed & are unremarkable except as noted in HPI and below (HPI and those items noted below) Constitutional: Constitutional: Denies chills and Denies fever(s) Cardiovascular: Cardiovascular: Denies chest pain, Denies diaphoresis, Denies dyspnea and Denies paroxysmal nocturnal dyspnea Respiratory: Respiratory: Denies chest congestion, Denies cough and Denies dyspnea Integumentary/Breasts: Skin/Breast: Denies lesions and Denies rash PMFSH Past Medical History Medical History Arthritis Deep vein blood clot of left lower extremity Deep vein blood clot of right lower extremity Generalized headaches Inflammatory arthritis Lumbar degenerative disc disease Osteoarthritis of both knees Plantar fasciitis Trochanteric bursitis of both hips Surgical History Surgical History deliv NOS-unsp H/O adenoidectomy H/O: hysterectomy History of carpal tunnel release of both wrists History of cholecystectomy History of hip surgery (~06/16/23) Rt - Bursectomy w/IT band release History of hip surgery (~09/01/23) Arthroscopic Left IT Band Release w/ Bursectomy History of tonsillectomy Family History Family History Father Heart disease Acute myocardial infarction Grandparent Acute myocardial infarction Grandparent Acute myocardial infarction Grandparent Cancer Social History Social History Smoking status: Never smoker Alcohol intake: current Drinks per week: 1 Alcohol use details: 3 PER MONTH Substance use: never Substance use type: does not use Do You Feel Safe in your Home?: Yes Lack of Transportation: No Lack of Food: Never True Current Housing: I Have Housing Concerned About Future Housing: No Difficulty Paying Gas/Electric Bills: No Difficulty Paying for Meds: No Currently Unemployed: No Education: High School Diploma/GED Difficulty w/ Childcare or Family Care: No Living arrangements: with family Spiritual care concerns: No Meds Home Medications and Allergies Home Medications Medication Instructions Recorded Confirmed Type multivitamin 1 tablet PO DAILY 04/15/23 11/27/23 History topiramate 50 mg tablet
[2023-11-27] MEDS: SODIUM CHLORIDE 0.9% IV 1,000 ML 80 ML IV CONT (11:55)
[2023-11-27] MEDS: polyethylene glycoL 3350 17 GM POWD.PACK PO (11:57)
--- NOTE | 2023-11-27 13:49 | WPDCN ---
Assessment and Plan Assessment and plan (1) Left lower quadrant pain: Code(s): R10.32 - Left lower quadrant pain Status: Acute Assessment and Plan: Status post laparoscopic appendectomy within adhesiolysis on 11/22/2023. Surgeon documents severe LLQ incisional pain postoperative day 1 which has worsened. Suspect pain is related to inflammation from recent surgery as it began shortly thereafter; recurrent shingles is rare. The site and her symptoms are reportedly the exact same as to when she had zoster sine herpete however. Empiric acyclovir 800 mg ordered pending varicella zoster PCR and IgM/IgG. (2) Transaminitis: Code(s): R74.01 - Elevation of levels of liver transaminase levels Status: Acute Assessment and Plan: AST, ALT, and alkaline phosphatase are elevated compared to labs obtained on 11/22/2023. CT scan is without findings to correlate and abdominal exam in that region is benign. Check acetaminophen level and hepatitis panel and continue to monitor. Plan Thank you for allowing us to participate in this patient's care. Please do not hesitate to contact us with any questions. HPI Data of Consult Date/Time: 11/27/23 15:00 Requesting Physician: Rhys Nixon MD Consult Narrative Reason for consult: Left lower quadrant pain Narrative: This is a very pleasant 53-year-old female with reported history of internal shingles, migraine headaches, and arthritis whom the hospitalist service has been consulted for left lower quadrant pain. The patient provides the following history. She was admitted through the ED on 11/22/2023 with acute appendicitis status post somewhat complicated laparoscopic appendectomy due body habitus, adhesions, and retrocecal appendix. She was kept an extra day due to significant incisional pain in the left lower quadrant and she was discharged home postoperative day 2. It is severe and burning and with movement ?it feels like I am being shredded and ripped apart inside.? The pain is constant and is worse with touch and movement. It radiates throughout the lower quadrant and just slightly around the left flank. Becker has not helped whatsoever. The symptoms are similar to but much more severe than when she was diagnosed with internal shingles a little over 6 years ago. Its distribution is the same as well. She did not have the symptoms prior to presenting to the ED and she only noted them the day following surgery. The laparoscopic site is well approximated and she has not noticed any redness or drainage from there. There is no noticeable rash. She denies fever, chills, and sweats. No nausea, vomiting, diarrhea, or hematuria. Vital signs have been stable since arrival and she is afebrile. CMP and CBC were pretty unremarkable except for an AST of 138, ALT 166, alkaline phosphatase 134. CT of the abdomen and pelvis showed postoperative and residual inflammatory changes from recent appendicitis. She was admitted to the surgery service through the ED for uncontrollable pain and hospitalist service has been consulted in this setting as Dr. Nixon does not feel that her pain as related to surgery and has some concern for shingles. Review of Systems Review of Systems: 12 systems were reviewed and are negative except for as per HPI. [facility] Past Medical History Medical History (Updated 11/27/23 @ 14:51 by Gunjan Bradshaw PA-C) Arthritis Deep vein blood clot of left lower extremity Deep vein blood clot of right lower extremity Generalized headaches Inflammatory arthritis Lumbar degenerative disc disease Osteoarthritis of both knees Surgical History Surgical History (Updated 11/27/23 @ 13:52 by Gunjan Bradshaw PA-C) History of appendectomy (11/2023) History of carpal tunnel release of both wrists History of section History of cholecystectomy History of hip surgery (06/16/23) Right bursectomy with IT band release History of hip surgery (09/01/23) Art
[2023-11-27] MEDS: MULTIVITAMINS THERAPEUTIC TAB (*BKC) 1 TABLET PO (17:55)
[2023-11-27] MEDS: DOCUSATE SODIUM 100 MG CAPSULE PO (17:55)
[2023-11-27] MEDS: TOPIRAMATE 25 MG TABLET 50 MG PO (17:55)
[2023-11-27] MEDS: HYDROcodone/acetaminophen (*CRX) 5-325 MG TABLET 1 TAB PO (17:56)
[2023-11-27 18:44] LABS: Acetaminophen < 10 ug/mL (10-30)
[2023-11-27 19:23] LABS: Hepatitis B Surface Antigen Negative (Negative)
[2023-11-27 19:29] LABS: HAV RESULT Negative (Negative); Hepatitis B Core IgM Result Negative (Negative)
[2023-11-27 19:41] LABS: Hepatitis C Virus Antibody Negative (Negative)
[2023-11-27] MEDS: SENNA/DOCUSATE SODIUM TABLET 2 TAB PO (20:47)
[2023-11-27] MEDS: IBUPROFEN IV 800 MG/200 ML 800 MG/200 ML BAG 400 MG IVPB (20:55)
[2023-11-27] MEDS: ACYCLOVIR 400 MG TABLET 800 MG PO (21:28)
[2023-11-28] MEDS: SODIUM CHLORIDE 0.9% IV 1,000 ML 80 ML IV CONT (00:49)
[2023-11-28 05:52] LABS: Hematocrit 41.4 % (37.0-47.0); Hemoglobin 13.3 g/dL (12.0-15.0); Mean Corpuscular HGB Conc 32.1 g/dl (32-36); Mean Corpuscular Hemoglobin 30.2 pg (26-34); Mean Corpuscular Volume 93.9 fl (80-100); Mean Platelet Volume 8.6 fl (7.4-10.4); Platelet Count Result 282 k/mm3 (150-375); Red Blood Count 4.41 M/mm3 (4.2-5.4); Red Cell Distribution Width 12.9 % (11.5-14.5); White Blood Count 6.3 K/mm3 (4.5-10.0)
[2023-11-28 06:06] LABS: Alanine Aminotransferase 179 U/L (6-35); Albumin Level 3.3 g/dL (3.5-5.1); Alkaline Phosphatase 140 U/L (38-126); Anion Gap 2 mmol/L (4-12); Aspartate Amino Transferase 98 U/L (14-36); Bilirubin,Total 0.6 mg/dL (0.2-1.3); Blood Urea Nitrogen 8 mg/dL (7-17); Calcium 8.4 mg/dL (8.4-10.2); Carbon Dioxide 24 mmol/L (22-30); Chloride 111 mmol/L (98-107); Estimated CRCL calculation 111 ml/min; Estimated Glomerular Filt Rate > 60; Glucose 82 mg/dL (65-110); Magnesium 2.1 mg/dL (1.6-2.3); Potassium 3.8 mmol/L (3.4-5.0); Sodium 137 mmol/L (137-145)
[2023-11-28 06:24] VITALS: BP 132/74; PULSE 64; RESP 16; TEMP 36.9; O2SAT 98
[2023-11-28 08:00] VITALS: PULSE 64; RESP 16; O2SAT 98
--- NOTE | 2023-11-28 08:43 | PM.PNGS ---
Progress Note: A&P Assessment and Plan (1) Left lower quadrant pain: Code(s): R10.32 - Left lower quadrant pain Status: Acute Assessment and Plan: ?etiology, similar to previous shingles flare, labs pending, improved at this point, encourage po analgesia, add Tramadol, home soon if pain controlled Subjective Subjective Date/Time Seen: 11/28/23 08:43 Interval history: feels much improved, pain now 3-4, keon diet, ambulating s issue Review of Systems Review of Systems: All systems reviewed & are unremarkable except as noted in HPI and below Exam Const: General: cooperative, comfortable and no acute distress Resp: Auscultation: clear to auscultation bilaterally Cardio: Rate: regular rate Rhythm: regular rhythm GI: Inspection: normal to inspection, non-distended and incision GI Palp: Yes abdominal tenderness, Yes Soft to palpation, Yes Tenderness to palpation present (GI), No Guarding due to palpation present (GI) and No Rigid due to palpation Objective Data Vital Signs Vital Signs: Vital Signs - 24 hr 11/27/23 16:48 11/27/23 22:00 11/27/23 20:00 Temperature 36.6 C 36.6 C Pulse Rate 69 66 Respiratory Rate 14 16 Blood Pressure 130/71 132/69 Pulse Oximetry 94 96 Oxygen Delivery Room Air 11/28/23 06:24 Temperature 36.9 C Pulse Rate 64 Respiratory Rate 16 Blood Pressure 132/74 Pulse Oximetry 98 Oxygen Delivery Intake/Output Intake/Output: Intake & Output 11/25/23 11/26/23 11/27/23 11/28/23 23:59 23:59 23:59 23:59 Intake Total 1176.7 1200 Balance 1176.7 1200 Meds/Results Medications: Active Medications Generic Name Dose Route Start Last Admin Trade Name Freq PRN Reason Stop Dose Admin Hydrocodone Bitart/Acetaminophen 1 tab 11/27/23 14:53 11/27/23 17:56 Hydrocodone/Acetaminophen (*Crx) 5-325 Mg Tablet PO 1 tab Q6H PRN Administration pain Acyclovir 800 mg 11/27/23 21:00 11/27/23 21:28 Acyclovir 400 Mg Tablet PO 800 mg 5 TIMES DAILY SUKHJINDER Administration Docusate Sodium 100 mg 11/27/23 17:00 11/27/23 17:55 Docusate Sodium 100 Mg Capsule PO 100 mg BID SUKHJINDER Administration Enoxaparin Sodium 40 mg 11/28/23 09:00 Enoxaparin 40 Mg/0.4 Ml Syringe SUB-Q DAILY SUKHJINDER Sodium Chloride 1,000 mls @ 80 mls/hr 11/27/23 01:55 11/28/23 00:49 Normal Saline Iv IV CONT 80 mls/hr .[id number] SUKHJINDER Administration Ibuprofen 800 mg in 200 mls @ 400 mls/hr 11/27/23 09:03 11/27/23 20:55 Caldolor 800 Mg/200 Ml IVPB 400 mls/hr Q6H PRN Administration Breakthrough Pain Rated 1-3 or NPO Morphine Sulfate 4 mg 11/27/23 01:54 11/27/23 11:54 Morphine Sulfate (*Crx) 4 Mg/Ml Inj IV PUSH 4 mg Q2H PRN Administration Pain Rated 7-10 Morphine Sulfate 2 mg 11/27/23 09:03 Morphine Sulfate (*Crx) 2 Mg/Ml Inj IV PUSH Q2H PRN Breakthrough Pain Rated 4-6 or NPO Multivitamins Therapeutic 1 tablet 11/27/23 15:00 11/27/23 17:55 Multivitamins Therapeutic Tab (*Bkc) PO 1 tablet DAILY SUKHJINDER Administration Ondansetron HCl 4 mg 11/27/23 01:54 11/27/23 04:49 Ondansetron Inj 4 Mg/2 Ml Vial IV PUSH 4 mg Q4H PRN Administration Nausea Polyethylene Glycol 17 gm 11/27/23 11:00 11/27/23 11:57 Polyethylene Glycol 3350 17 Gm Powd.Pack PO 17 gm QAM SUKHJINDER Administration Senna/Docusate Sodium 2 tab 11/27/23 21:00 11/27/23 20:47 Senna/Docusate Sodium Tablet PO 2 tab HS SUKHJINEDR Administration Topiramate 50 mg 11/27/23 15:00 11/27/23 17:55 Topiramate 25 Mg Tablet PO 50 mg DAILY SUKHJINDER Administration Tramadol HCl 50 mg 11/28/23 08:41 Tramadol Hcl (*Crx) 50 Mg Tablet PO Q6H PRN Pain Rated 4-6 Radiology Results: ITS Impressions Abdomen/Pelvis CT 11/27/23 07:56 IMPRESSION: Postoperative and residual inflammatory changes from recent appendicitis Labs Labs: Laboratory Results - last 24 hr 11/27/23 11/28/23 18:11 04:55 WBC 6.3
[2023-11-28] MEDS: ACYCLOVIR 400 MG TABLET 800 MG PO ×2 (08:50→12:37)
[2023-11-28] MEDS: TOPIRAMATE 25 MG TABLET 50 MG PO (08:51)
[2023-11-28] MEDS: DOCUSATE SODIUM 100 MG CAPSULE PO (08:51)
[2023-11-28] MEDS: MULTIVITAMINS THERAPEUTIC TAB (*BKC) 1 TABLET PO (08:52)
[2023-11-28] MEDS: traMADol HCL (*CRX) 50 MG TABLET PO (10:04)
--- NOTE | 2023-11-28 13:25 | PM.IMPN ---
Progress Note: A&P Assessment and Plan (1) Left lower quadrant pain: Code(s): R10.32 - Left lower quadrant pain Status: Acute Assessment and Plan: Status post laparoscopic appendectomy within adhesiolysis on 11/22/2023. Surgeon documents severe LLQ incisional pain postoperative day 1 which has worsened. Suspect pain is related to inflammation from recent surgery as it began shortly thereafter; recurrent shingles is rare. The site and her symptoms are reportedly the exact same as to when she had zoster sine herpete however. Empiric acyclovir 800 mg ordered pending varicella zoster PCR and IgM/IgG. (2) Transaminitis: Code(s): R74.01 - Elevation of levels of liver transaminase levels Status: Acute Assessment and Plan: Stable, [place] changed to tramadol by surgery Plan Thank you for allowing us to participate in this patient's care. Please do not hesitate to contact us with any questions. Okay for discharge from hospitalist perspective; prescription written for continued acyclovir Time Spent With Patient Time with patient: less than 15 minutes Subjective Date/time seen: 11/28/23 13:25 Interval history: Patient admitted for left lower quadrant abdominal pain thought to be postoperative from appendectomy. Patient prior history shingles in the dermatome that is currently affected left abdomen. Started on acyclovir. Pain control per primary service surgery. Review of Systems Review of Systems: 12 systems were reviewed and are negative except for as per HPI. Exam Narrative: General: Well-developed, nontoxic-appearing female in the semi-Pleitez position in bed. HEENT: PERRL, EOMI. Sclera anicteric. Oral mucosa moist. Neck: Supple. Respiratory: Lungs are clear to auscultation bilaterally. Cardiovascular: Regular rate and rhythm with S1-S2. Gastrointestinal: Abdomen is soft, obese, and nondistended with positive bowel sounds. Three laparoscopic incision sites are noted to be well approximated and healing nicely. No erythema or discharge around the sites. Small bruise in the left lower quadrant which may be related to enoxaparin injection. There is no swelling noted in the area. She is quite tender to palpation throughout the left lower quadrant without guarding or rebound tenderness. Mild tenderness in the right lower quadrant. Skin: Warm and dry. No rashes seen. Extremities: No cyanosis, clubbing, or edema. Radial and pedal pulses intact. Neurological: Alert. Cranial nerves 2-12 are grossly intact. Speech is clear. No facial asymmetry. No gross focal deficits to casual conversation. Psychiatric: Pleasant and cooperative with normal mood and affect. Judgment and insight intact. Objective Data Vital Signs Vital Signs: Vital Signs - 24 hr 11/27/23 16:48 11/27/23 22:00 11/27/23 20:00 Temperature 36.6 C 36.6 C Pulse Rate 69 66 Respiratory Rate 14 16 Blood Pressure 130/71 132/69 Pulse Oximetry 94 96 Oxygen Delivery Room Air 11/28/23 06:24 11/28/23 08:00 Temperature 36.9 C Pulse Rate 64 64 Respiratory Rate 16 16 Blood Pressure 132/74 Pulse Oximetry 98 98 Oxygen Delivery Room Air Intake/Output Intake/Output: Intake & Output 11/25/23 11/26/23 11/27/23 11/28/23 23:59 23:59 23:59 23:59 Intake Total 1176.7 1440 Balance 1176.7 1440 Meds/Results Medications: Active Medications Generic Name Dose Route Start Last Admin Trade Name Freq PRN Reason Stop Dose Admin Acyclovir 800 mg 11/27/23 21:00 11/28/23 12:37 Acyclovir 400 Mg Tablet PO 800 mg 5 TIMES DAILY SUKHJINDER Administration Enoxaparin Sodium 40 mg 11/28/23 09:00 11/28/23 08:52 Enoxaparin 40 Mg/0.4 Ml Syringe SUB-Q Not Given DAILY SUKHJINDER Sodium Chloride 1,000 mls @ 80 mls/hr 11/27/23 01:55 11/28/23 00:49 Normal Saline Iv IV CONT 80 mls/hr .[id number] SUKHJINDER Administration Ibuprofen 800 mg in 200 mls @ 400 mls/hr 11/27/23 09:03 11/27/23 20:55 Cald
--- NOTE | 2023-11-29 15:08 | PM.DS ---
DS: Admitting Diagnosis Discharge Date 11/28/23 Admitting Diagnosis Left lower quadrant abdominal pain DS: Discharge Diagnosis Discharge Diagnosis (1) Left lower quadrant pain: Code(s): R10.32 - Left lower quadrant pain Status: Acute Assessment and Plan: improved with conservative measures, empiric acyclovir given per Medicine, serology pending for recurrent shingles, home with tramadol (2) History of laparoscopic appendectomy: Code(s): Z90.49 - Acquired absence of other specified parts of digestive tract Status: Acute Assessment and Plan: doing well, continue routine postoperative care, imaging and workup in the ER negative status post appendectomy DS: Summary Hospital Course Reason for hospitalization: left lower quadrant abdominal pain Hospital Course: The patient is a 53-year-old female presenting to the emergency department complaining of severe left lower quadrant abdominal pain. Of note, the patient had laparoscopic appendectomy about a week ago for acute appendicitis. Workup, including imaging, was essentially negative. The patient was admitted to the surgical service for observation. Upon evaluation, it was noted that all incisions were clean, dry, and intact. Abdominal exam was largely unremarkable. Medical consultation was obtained and patient with history of shingles with similar symptomatology in the past. The patient was given empiric acyclovir. Upon evaluation the following day, the patient reports her pain had substantially improved. She was tolerating a diet ambulating without difficulty. Her p.o. analgesia was changed to tramadol. The patient will be discharged home with tramadol and follow-up with surgery in 2 weeks. Status at Discharge Functional status at discharge: independent ambulation Overall status at discharge: patient is progressing back to baseline Time Spent with Patient Time attestation: Total time spent providing and/or coordinating discharge services: Time spent: Less than 30 minutes Exam Const: General: cooperative, comfortable and no acute distress Resp: Auscultation: clear to auscultation bilaterally Cardio: Rate: regular rate Rhythm: regular rhythm GI: Inspection: normal to inspection, non-distended and incision GI Palp: Yes abdominal tenderness, Yes Soft to palpation, Yes Tenderness to palpation present (GI), No Guarding due to palpation present (GI) and No Rigid due to palpation Discharge Plan Discharge Attending physician on discharge: Shiloh Virk Consulting providers: Gunjan Bradshaw; Angel Patel; Shiloh Virk; Angel Granado Discharging Clinician: Shiloh Virk Anticipated Discharge Date/Time: 11/28/23 13:29 Patient Disposition: Home, Self-Care Activity: may shower and as tolerated Diet: as tolerated Wound Care Instructions: incision open to air Patient Instructions: Antibiotic Form Stand Alone Forms: General Discharge Information, Work/School Release IP Follow-up/Referrals: Shiloh Virk MD [Physician] - Call for Appointment Discharge Medications: New tramadol 50 mg tablet 50 mg PO Q6H PRN (Reason: pain) Qty: 20 0RF polyethylene glycol 3350 [Miralax] 17 gram Powder In Packet 17 g PO QAM Qty: 30 0RF acyclovir 400 mg Tablet 800 mg PO 5 TIMES DAILY Qty: 60 0RF Continued multivitamin Tablet 1 tablet PO DAILY docusate sodium [Colace] 100 mg capsule 100 mg PO BID Qty: 20 0RF topiramate 50 mg tablet 50 mg PO DAILY Qty: 90 0RF Discontinued hydrocodone-acetaminophen 5-325 mg tablet 1 tablet PO Q6H PRN (Reason: pain) Qty: 20 0RF Date of admission: 11/27/23 01:54 Primary Care Provider: Claudio Granado Admitting Provider: Rhys Nixon Attending physician on admission: Rhys Nixon Condition: Stable
[2023-12-01 21:13] LABS: Varicella IgM Antibody 0.12
[2023-12-05 11:21] LABS: Reference Lab Test Result Not Detected
== END 2023-11-28 14:15 | disposition home or self-care (01) ==
LOC: ANHED 11-27 01:53 → ANH2MED 11-27 03:47
PROVIDERS: Physician Assistant; Preventive Medicine Aerospace Medicine; Admitting Provider Surgery; Emergency Provider Physician Assistant; PCP Family Medicine; Visit Provider Surgery
DX: R10.32 Left lower quadrant pain (principal); G89.18 Other acute postprocedural pain; R74.01 Elevation of levels of liver transaminase levels; Z86.718 Personal history of other venous thrombosis and embolism; Z90.49 Acquired absence of other specified parts of digestive tract; Z79.899 Other long term (current) drug therapy
CPT/HCPCS: 36415; 74177; 80053; 80074; 80307; 81001; 81025; 83690; 83735; 85025; 85027; 86787; 96374; 96375; 99285; A9270; G0378; J1741; J1885; J2270; J2405; J7030; Q9967

== ENCOUNTER 2024-08-03 14:46 | Outpatient (CLI) | payer OTHER, SELFPAY ==
--- NOTE | ~2024-08-03 | MR_ITS ---
EXAMINATION: MR brain/brain stem wo/w con DATE: 08/03/2024 15:46 INDICATION: Headache TECHNIQUE: Magnetic resonance imaging (MRI) of the brain and brainstem was performed without and with 20 mL Multihance intravenous contrast. Sequences included sagittal and axial T1-weighted SE, axial d iffusion-weighted FS SE, axial 3D SWAN, axial T2-weighted FLAIR, and axial T2-weighted FSE. Postcontr ast axial and coronal T1-weighted SE was obtained. Apparent diffusion coefficient (ADC) maps were cre ated. COMPARISON: Head CT dated 03/31/2020 FINDINGS: There are no areas of restricted diffusion to suggest acute infarction. No intracranial hemorrhage or abnormal intracranial mass lesion. Subtle signal loss at the posterior right thalamus on the suscept ibility weighted imaging at the site of a prior subtle hyperdense lesion on the CT from 4 years prior and with subtle enhancement on the postcontrast imaging most consistent with a cavernous venous malf ormation. No abnormal T2 signal to suggest recent hemorrhage. There are no intraparenchymal signal ab normalities seen on the other pulse sequences. The ventricles are symmetric and normal in size. There are no abnormal extra-axial fluid collections. Flow voids are seen in the cerebral arteries on the T 2-weighted sequences consistent with their expected patency. Left vertebral artery is dominant. There are mucous retention cyst in the bilateral maxillary sinuses and mild mucosal thickening the bilater al ethmoid sinuses. Visualized orbits and soft tissues are unremarkable. IMPRESSION: 1. 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 No acute intracranial process. Reviewed, dictated and finalized at location B. ASSISTANT IMPRESSION: 1. Lesion at the posterior right thalamus at the site of a prior subtle hypoden se lesion on CT from 4 years prior most consistent with a cavernous venous malf ormation with sequela of chronic hemorrhage. No acute intracranial process.
--- OUTSIDE RECORDS SUMMARY | 2024-08-09 07:11 | XMS_ITS | Clinical Summary ---
Author Organization [facility] Address [address] [place] [address] Care Team Providers Care Human Resources Officer Name Role Phone Major Palacios DO Primary Care Provider Source Comments [facility],non-owned Affiliates and Associated Physician Practices is amultiple site organization consisting of ambulatory clinics and hospital sitesin [place], [place], [place] and [place]. This disclosure is being madepursuant to the Care Everywhere program and may not contain all information available regarding this patient. Last updated 18.[facility] Allergies Active Allergy Reactions Criticality Noted Date Comments Coconut Oil Urticaria,Rash Medium 05/03/2019 Latex Urticaria,Itching,Sw ell ing Medium 05/03/2019 Penicillins Other 05/03/2019 Unknown. Given to patient as an infant. Shellfish Allergy Urticaria,Rash Medium 05/03/2019 Wasp Venom Urticaria,Rash Medium 05/03/2019 Medications * Be aware that medications may not be up to date on this document. Alwaysverify current medications with the patient. Medication Sig Dispensed Refills Start Date End Date Status albuterol HFA (PROVENTIL;VENTOLIN;ND OAIR) 108 (90 Base) MCG/ACT inhaler Inhale 2 puffs by mouth every 4 hours as needed 0 03/08/2019 Active Multiple Vitamins-Minerals (MULTIVITAMIN ADULT PO) Take 1 tablet by mouth once daily Active Family History Relation Name Status Comments Father Adopted Other Mother Adopted Other Social History Tobacco Use Types Packs/Day Years Used Date Smoking Tobacco: Never Smokeless Tobacco: Never Alcohol Use Standard Drinks/Week Comments Yes 0 (1 standard drink = 0.6 oz pur e alcohol) Rarely Sex and Gender Information Value Date Recorded Sex Assigned at Not on file Gender Identity Not on file Sexual Orientation Not on file Last Filed Vital Signs Vital Sign Reading Time Taken Comments Blood Pressure 136/86 05/03/2019 4:40 PM CDT Pulse 84 05/03/2019 4:40 PM CDT Temperature 36.7 ??C (98 ??F) 05/03/2019 4:40 PM CDT Respiratory Rate - - Oxygen Saturation 97% 05/03/2019 4:40 PM CDT Inhaled Oxygen Concentration - - Weight 118.3 kg (260 lb 12.8 oz) 05/03/2019 4:40 PM CDT Height 172.7 cm (5' 8 ) 05/03/2019 4:40 PM CDT Body Mass Index 39.65 05/03/2019 4:40 PM CDT Plan of Treatment Health Maintenance Due Date Last Done Comments COLOGUARD (AGES 45-75) - COL ON CA SCREENING 1969 COLON MONITORING 1969 COLONOSCOPY - COLON CA SCREENING 1969 CT COLONOGRAPHY - COLON CA SCREENING 1969 Colorectal Cancer Screening 1969 FIT - COLON CA SCREENING 1969 FLEX SIG - COLON CA SCREENING 1969 LIPID TESTING 1969 MAMMOGRAM 1969 PAP SMEAR 1969 HIV SCREENING 1984 HEPATITIS C SCREENING 05/09/1987 DTAP/TDAP/TD VACCINES (1 - Tdap) 1988 HEPATITIS B VACCINE (1 of 3 - 19+ 3-dose series) 1988 SCREENING FOR DIABETES 05/03/2019 PNEUMOCOCCAL VACCINE 50+ (1 of 1 - PCV) 2019 ZOSTER VACCINE (1 of 2) 2019 COVID-19 VACCINE ( - 2023-2 5 season) 2024 INFLUENZA VACCINE (#1) 2024 DEPRESSION SCREENING 07/18/2024 HIB VACCINE Aged Out No longer eligi ble based on patient's age to complete this topic HPV VACCINE Aged Out No longer eligi ble based on patient's age to complete this topic MENINGOCOCCAL (Group B) VACCINE Aged Out No longer eligible based on patient's age to complete this topic MENINGOCOCCAL VACCINE Aged Out No justyn joslyn eligible based on patient's age to complete this topic PNEUMOCOCCAL VACCINE Aged Out No long er eligible based on patient's age to complete this topic Care Teams Human Resources Officer Relationship Specialty Start Date End Date Major Palacios DO [address] [place] [address] PCP - General 05/03/19
--- OUTSIDE RECORDS SUMMARY | 2024-08-09 07:11 | XMS_ITS | Referral Summary ---
Author Organization [facility] Address [address] [place] [address] Care Team Providers Care Prepared Foods Associate Name Role Phone Major Palacios DO Primary Care Provider Source Comments [facility],non-owned Affiliates and Associated Physician Practices is amultiple site organization consisting of ambulatory clinics and hospital sitesin [place], [place], [place] and [place]. This disclosure is being madepursuant to the Care Everywhere program and may not contain all information available regarding this patient. Last updated 18.[facility] Allergies Active Allergy Reactions Criticality Noted Date [...] Start Date End Date Status albuterol HFA (PROVENTIL;VENTOLIN;[place] OAIR) 108 (90 Base) MCG/ACT inhaler Inhale 2 puffs by mouth every 4 hours as needed 0 03/08/2019 Active Multiple Vitamins-Minerals (MULTIVITAMIN ADULT PO) Take 1 tablet by mouth once daily Active Social History Tobacco Use Types Packs/Day Years [...] 05/03/2019 4:40 PM CDT Plan of Treatment Not on file Care Teams Prepared Foods Associate Relationship Specialty Start Date End Date Major Palacios DO [address] [address] PCP - General 05/03/19
--- OUTSIDE RECORDS SUMMARY | 2024-08-09 07:11 | XMS_ITS | Patient Health Summary ---
Author Organization [facility] Address [address] [place] [address] Care Team Providers Care Garde Manager Name Role Phone Major Palacios DO Primary Care Provider [phone] Note from [facility],non-owned Affiliates and Associated Physician Practices is amultiple site organization consisting of ambulatory clinics and hospital sitesin [place], [place], [place] and [place]. This disclosure is being madepursuant to the Care Everywhere program and may not contain all information available regarding this patient. Last updated 18.[facility] Allergies * Coconut Oil(Urticaria,Rash) -Medium Criticality * Latex(Urticaria,Itching,Swelling) -Medium Criticality * Penicillins(Other) * Shellfish Allergy(Urticaria,Rash) -Medium Criticality * Wasp Venom(Urticaria,Rash) -Medium Criticality Medications * Be aware that medications may not be up to date on this document. Alwaysverify current medications with the patient. * albuterol HFA (PROVENTIL;VENTOLIN;PROAIR) 108 (90 Base) MCG/ACT inhaler (Started 03/08/2019) Inhale 2 puffs by mouth every 4 hours as needed * Multiple Vitamins-Minerals (MULTIVITAMIN ADULT PO) Take 1 tablet by mouth once daily Social History Tobacco Use Types Packs/Day Years [...] Mass Index 39.65 05/03/2019 4:40 PM CDT Care Teams Garde Manager Relationship Specialty Start Date End Date Major Palacios DO [address] [place] [address] PCP - General 05/03/19
--- OUTSIDE RECORDS SUMMARY | 2024-08-09 07:11 | XMS_ITS | Clinical Summary ---
Author Organization [facility] Address [address] [place] [address] Phone Care Team Providers Care Chipping Machine Operator Name Role Phone Provider, None Primary Care Provider Unavailabl e Allergies Active Allergy Reactions Criticality Noted Date Comments Bee Venom Swelling 07/18/2015 Penicillins Unknown 07/18/2015 Shellfish Allergy Hives 07/18/2015 Medications Multiple Vitamins-Mineral s (MULTIVITAMIN PO) Take 1 Tab by mouth daily. Active ibuprofen (MOTRIN) 600 MG Tablet Take 1 Tab by mouth every 6 hours as needed. 30 Tab 3 07/18/2015 Active Active Problems No known active problems Social History Tobacco Use Types Packs/Day Years Used Date Smoking Tobacco: Never Assessed Comments No Sex and Gender Information Value Date Recorded Sex Assigned at Not on file Legal Sex Female 10:34 PM CDT Gender Identity Not on file Sexual Orientation Not on file Last Filed Vital Signs Vital Sign Reading Time Taken Comments Blood Pressure 138/71 07/18/2015 1:30 PM PAINTER AND BODY WORK Pulse 89 07/18/2015 1:30 PM PAINTER AND BODY WORK Temperature 36.6 ??C (97.8 ??F) 07/18/2015 9:18 AM CS T Respiratory Rate 19 07/18/2015 1:30 PM PAINTER AND BODY WORK Oxygen Saturation 96% 07/18/2015 1:30 PM PAINTER AND BODY WORK Inhaled Oxygen Concentration - - Weight 127 kg (280 lb) 07/18/2015 9:18 AM PAINTER AND BODY WORK Height 175.3 cm (5' 9 ) 07/18/2015 9:18 AM PAINTER AND BODY WORK Body Mass Index 41.35 07/18/2015 9:18 AM PAINTER AND BODY WORK Plan of Treatment Not on file Care Teams Chipping Machine Operator Relationship Specialty Start Date End Date Provider, None [place] PCP - General 07/18/15
--- OUTSIDE RECORDS SUMMARY | 2024-08-09 07:12 | XMS_ITS | Referral Summary ---
Author Organization [facility] Address [address] [place] [address] Care Team Providers Care Wafer Polisher Name Role Phone Major Palacios DO Primary Care Provider [phone] Parrish Lovett MD Unavailable [phone] Miscellaneous, Not In File Unavailable Unava ilable Encounters Date Type Department Care Team Description 07/17/2024 12:15 PM FRONT COUNTER ATTENDANT Office Visit [facility] [place] [address] [place] [address] Myriam Downs, JULIUS Strep pharyngitis (Primary Dx); Right acute otitis media from Last 3 Months Allergies Active Allergy Reactions Criticality Noted Date Comments Coconut Latex Penicillin G Penicillins Shellfish Containing Products Venom-Honey Bee Wasp Venom Rash,Urticaria Medium 05/03/2019 Medications ondansetron ODT (ZOFRAN-ODT) 4 mg disintegrating tablet Dissolve 1 tablet oral every 4 hours as needed for nausea or vomiting. 15 tablet 04/01/20 18 Active butalbital-acetami nophen-caffeine (ESGIC) 50-325-40 mg per tabletIndications: Tension-Type Headache Take 1-2 tablets by mouth every 4 (four) hours as needed for headaches (1 tablet for mild to moderate pain or 2 tablets for severe pain.) Do not exceed 6 tablets/day. 20 tablet 03/24/20 20 Active acetaminophen (TYLENOL) 325 mg tabletIndications: Pain Take 2 tablets (650 mg total) by mouth every 4 (four) hours as needed for pain (first line headache treatment) Take with ibuprofen. Do not take with Esgic. 04/04/20 20 Active prochlorperazine (COMPAZINE) 10 mg tablet Take 1 tablet (10 mg total) by mouth every 6 (six) hours as needed (2nd line treatment for headache) 30 tablet 1 04/04/20 20 Active ibuprofen (ADVIL,MOTRIN) 600 mg tabletIndications: Pain Take 1 tablet (600 mg total) by mouth every 8 (eight) hours as needed for pain (First line headache treatment) To be administered with tylenol. 04/04/20 20 Active gabapentin (NEURONTIN) 100 mg capsule Take 1 capsule (100 mg total) by mouth 3 (three) times a day 90 capsule 11 04/01/20 21 Active Additional Information Patient not taking.Reported on 12/16/2022 topiramate (TOPAMAX) 50 mg tablet Take 1 tablet (50 mg total) by mouth daily 10/29/19 23 Active azithromycin (ZITHROMAX) 250 mg tabletIndications: Strep pharyngitis Take 2 tablets the first day, then 1 tablet daily for 4 days 6 tablet 12/17/19 23 Active amoxicillin (AMOXIL) 875 mg tabletIndications: Strep pharyngitis,Right acute otitis media Take 1 tablet (875 mg total) by mouth 2 (two) times a day for 10 days 20 tablet 07/17/20 24 025 Active Problems Problem Noted Date Diagnosed Date Vertigo 12/01/2013 Overview (10/21/2016): Vertigo Social History Tobacco Use Types Packs/Day Years Used Date Smoking Tobacco: Never Smokeless Tobacco: Never Tobacco Cessation:Counseling Given: Not Answered Alcohol Use Standard Drinks/Week Comments Yes 0 (1 standard drink = 0.6 oz pur e alcohol) AUDIT-C Answer Date Recorded Q1: How often do you have a drink containing alc ohol? Never 04/01/2021 Average Number of Drinks Not on file 021 Frequency of Binge Drinking Not on file 03/18 Comments No Sex and Gender Information Value Date Recorded Sex Assigned at Not on file Legal Sex Female 7:44 PM FRONT COUNTER ATTENDANT Gender Identity Not on file Sexual Orientation Not on file Last Filed Vital Signs Vital Sign Reading Time Taken Comments Blood Pressure 138/90 07/17/2024 12:13 PM FRONT COUNTER ATTENDANT Pulse 82 07/17/2024 12:13 PM FRONT COUNTER ATTENDANT Temperature 36.7 ??C (98 ??F) 07/17/2024 12:13 PM FRONT COUNTER ATTENDANT Respiratory Rate 16 07/17/2024 12:13 PM FRONT COUNTER ATTENDANT Oxygen Saturation 98% 07/17/2024 12:13 PM FRONT COUNTER ATTENDANT Inhaled Oxygen Concentration - - Weight 113.9 kg (251 lb) 07/17/2024 12:13 PM FRONT COUNTER ATTENDANT Height 172.7 cm (5' 8 ) 07/17/2024 12:13 PM FRONT COUNTER ATTENDANT Body Mass Index 38.16 07/17/2024 12:13 PM FRONT COUNTER ATTENDANT Plan of Treatment Not on file Procedures Procedure Name Priority Date/Time Associated Diagnosis Comments POCT RAPID STREP Routine 07/17/2024 12:2 1 PM FRONT COUNTER ATTENDANT Strep pharyngitis from Last 3 Months Results * (ABNORMAL) POCT rapid strep A (07/17/2024 12:21 PM FRONT COUNTER ATTENDANT) Rapid Strep A, POC Positive(A ) Negative Swab 07/17/2024 12:2 1 PM FRONT COUNTER ATTENDANT Myriam Downs NP POINT OF CARE TEST ORDERABLES Final Result from Last 3 Months Insurance CHOICE PLUS CHOICE PLUS CHOICE PLUS Care Teams Wafer Polisher Relationship Specialty Start Date End Date Major Palacios DO PCP - General 03/23/20 Parrish Lovett MD Referring Physician Neurosurgery 04/04/20 Miscellaneous, Not In File 04/04/20
--- OUTSIDE RECORDS SUMMARY | 2024-08-09 07:12 | XMS_ITS | Clinical Summary ---
Author Organization [facility] Address [address] [place] [address] Care Team Providers Care Hat Liner Name Role Phone Major Palacios DO Primary Care Provider [phone] Parrish Lovett MD Unavailable [phone] Miscellaneous, Not In File Unavailable Unava ilable Allergies Active Allergy Reactions Criticality Noted Date [...] Diagnosed Date Vertigo 12/01/2013 Overview (10/21/2016): Vertigo Encounters Date Type Department Care Team Description 07/17/2024 12:15 PM JAVA SOFTWARE DEVELOPER Office Visit [facility] [place] [address] [place] [address] Myriam Downs, STEREO EQUIPMENT REPAIRER Strep pharyngitis (Primary Dx); Right acute otitis media from Last 3 Months Surgical History Surgery Date Site/Laterality Comments OTHER SURGICAL HISTORY c sections CHOLECYSTECTOMY gallbladder removed OTHER SURGICAL HISTORY lymphectomy OTHER SURGICAL HISTORY c. hysterectomy OTHER SURGICAL HISTORY foot surgery-left SECTION 07/18/1994 - 07/17/1995 C section SECTION 07/18/1996 - 07/17/1997 C section OTHER SURGICAL HISTORY Tonsils and adenoids 1995 OTHER SURGICAL HISTORY Gallbladder surgery 1997 OTHER SURGICAL HISTORY Hysterectomy 2002 OTHER SURGICAL HISTORY Foot surgery 2006 OTHER SURGICAL HISTORY Lumpectomy 1998 HYSTERECTOMY LUMBAR PUNCTURE WO INJECTION, DIAGNOSTIC 04/03/2020 N/A Social History Tobacco Use Types Packs/Day Years [...] on file Legal Sex Female 7:44 PM JAVA SOFTWARE DEVELOPER Gender Identity Not on file Sexual Orientation Not on file Obstetrics History Last Filed Vital Signs Vital Sign Reading Time Taken Comments Blood Pressure 138/90 07/17/2024 12:13 PM JAVA SOFTWARE DEVELOPER Pulse 82 07/17/2024 12:13 PM JAVA SOFTWARE DEVELOPER Temperature 36.7 ??C (98 ??F) 07/17/2024 12:13 PM JAVA SOFTWARE DEVELOPER Respiratory Rate 16 07/17/2024 12:13 PM JAVA SOFTWARE DEVELOPER Oxygen Saturation 98% 07/17/2024 12:13 PM JAVA SOFTWARE DEVELOPER Inhaled Oxygen Concentration - - Weight 113.9 kg (251 lb) 07/17/2024 12:13 PM JAVA SOFTWARE DEVELOPER Height 172.7 cm (5' 8 ) 07/17/2024 12:13 PM JAVA SOFTWARE DEVELOPER Body Mass Index 38.16 07/17/2024 12:13 PM JAVA SOFTWARE DEVELOPER Plan of Treatment Health Maintenance Due Date Last Done Comments Breast Cancer Screening-Mammogram 1969 Colon Cancer Screening-Colonoscopy 1969 Depression Screening 1969 Hepatitis C Screening 1969 DTaP/Tdap/Td Vaccine (1 - Tdap) 1980 Hepatitis B Screening 1987 Regular Well Visit/Exam 18-64 1987 Zoster Vaccine (1 of 2) 2019 Influenza Vaccine (#1) 2024 Pneumococcal vaccine <65 Aged Out No longer eligible based on patient's age to complete this topic Procedures Procedure Name Priority Date/Time Associated Diagnosis Comments POCT RAPID STREP Routine 07/17/2024 12:2 1 PM JAVA SOFTWARE DEVELOPER Strep pharyngitis from Last 3 Months Results * (ABNORMAL) POCT rapid strep A (07/17/2024 12:21 PM JAVA SOFTWARE DEVELOPER) Rapid Strep A, POC Positive(A ) Negative Swab 07/17/2024 12:2 1 PM JAVA SOFTWARE DEVELOPER us Myriam Downs NP POINT OF CARE TEST ORDERABLES Final Result from Last 3 Months Insurance CHOICE PLUS CHOICE PLUS CHOICE PLUS Care Teams Hat Liner Relationship Specialty Start Date End Date Major Palacios DO PCP - General 03/23/20 Parrish Lovett MD Referring Physician Neurosurgery 04/04/20 Miscellaneous, Not In File 04/04/20
== END 2024-08-03 14:47 | disposition home or self-care (01) ==
PROVIDERS: PCP Family Medicine; Visit Provider Family Medicine
DX: G93.89 Other specified disorders of brain (principal); R51.9 Headache, unspecified
CPT/HCPCS: 70553; A9577

== ENCOUNTER 2025-06-12 09:29 | Outpatient (CLI) | payer BC, SELFPAY ==
--- OUTSIDE RECORDS SUMMARY | 2025-06-12 10:02 | XMS_ITS | Clinical Summary ---
Author Organization [facility] Address [address] [place] [address] Care Team Providers Care Engineering Mgr Name Role Phone Major Palacios DO Primary Care Provider [phone] Source Comments [facility],non-owned Affiliates and Associated Physician Practices is amultiple site organization consisting of ambulatory clinics and hospital sitesin [place], [place], [place] and [place]. This disclosure is being madepursuant to the Care Everywhere program and may not contain all information available regarding this patient. Last updated 18.[facility] Allergies Active Allergy Reactions Criticality Noted Date Comments Coconut Oil Urticaria,Rash Medium 05/03/2019 Latex Urticaria,Itching,Sw ell ing Medium 05/03/2019 Penicillins Other 05/03/2019 Unknown. Given to patient as an infant. Shellfish Allergy Urticaria,Rash Medium 05/03/2019 Wasp Venom Urticaria,Rash Medium 05/03/2019 Medications * Be aware that medications may not be up to date on this document. Alwaysverify current medications with the patient. albuterol HFA (PROVENTIL;JEREL KAREEM;PROAIR) 108 (90 Base) MCG/ACT inhaler Inhale 2 puffs by mouth every 4 hours as needed 0 03/08/2019 Active Multiple Vitamins-Mineral s (MULTIVITAMIN ADULT PO) Take 1 tablet by mouth once daily Active Family History Relation Name Status Comments Father Adopted Other Mother Adopted Other Social History Tobacco Use Types Packs/Day Years Used Date Smoking Tobacco: Never Smokeless Tobacco: Never Alcohol Use Standard Drinks/Week Comments Yes 0 (1 standard drink = 0.6 oz pur e alcohol) Rarely Comments No Sex and Gender Information Value Date Recorded Sex Assigned at Not on file Legal Sex Female 10:47 AM CDT Gender Identity Not on file Sexual Orientation Not on file Last Filed Vital Signs Vital Sign Reading Time Taken Comments Blood Pressure 136/86 05/03/2019 4:40 PM CDT Pulse 84 05/03/2019 4:40 PM CDT Temperature 36.7 C (98 F) 05/03/2019 4:40 PM CDT Respiratory Rate - - Oxygen Saturation 97% 05/03/2019 4:40 PM CDT Inhaled Oxygen Concentration - - Weight 118.3 kg (260 lb 12.8 oz) 05/03/2019 4:40 PM CDT Height 172.7 cm (5' 8) 05/03/2019 4:40 PM CDT Body Mass Index [...] SCREENING 1969 LIPID TESTING 1969 MAMMOGRAM 1969 HIV SCREENING 1984 HEPATITIS C SCREENING 05/09/1987 DTAP/TDAP/TD VACCINES (1 - Tdap) 1988 HEPATITIS B VACCINE (1 of 3 - 19+ 3-dose series) 1988 SCREENING FOR DIABETES 05/03/2019 PNEUMOCOCCAL VACCINE 50+ (1 of 1 - PCV) 2019 ZOSTER VACCINE (1 of 2) 2019 DEPRESSION SCREENING 07/18/2024 COVID-19 VACCINE (1 - 2024-2 6 season) 2025 INFLUENZA VACCINE (#1) 2025 HIB VACCINE Aged Out No longer eligi ble based on patient's age to complete this topic HPV VACCINE Aged Out No longer eligi ble based on patient's age to complete this topic MENINGOCOCCAL (Group B) VACC INE SHARED DECISION-MAKING Aged Out No longer eligibl e based on patient's age to complete this topic MENINGOCOCCAL GROUPS A/C/Y/W VACCINE Aged Out No longer eligible b ased on patient's age to complete this topic Insurance AN[employer]M * Guarantor: DANISHA CORDON Account Type Relation to Patient Date of Phone Billing Address Personal/Family [address] [place] [address] SELF PAY NO INSURANCE Member Subscriber Plan / Payer (Ef fective for All Dates) Name:Dansiha Cordon Member ID:Not on file Relation to Subscriber:Not on file Name:DANISHA CORDON Subscriber ID:Not on file Address: [address] [place] [address] Payer ID:Not on file Group ID:Not on file Type:Self Pay Address: [facility] * Guarantor: DANISHA CORDON Account Type Relation to Patient Date of Phone Billing Address Personal/Family [address] [place] [address] HEALTH CARE SELF PAY NO INSURANCE Member Subscriber Plan / Payer (Ef fective for All Dates) Name:ZachdollyDuaneDanisha Wade Member ID:Not on file Relation to Subscriber:Not on file Name:DANISHA CORDON Subscriber ID:Not on file Address: [address] [place] [address] Payer ID:Not on file Group ID:Not on file Type:Self Pay Address: [place], [place] * Guarantor: DANISHA CORDON Account Type Relation to Patient Date of Phone Billing Address Personal/Family [address] [place] [address] SELF PAY NO INSURANCE Member Subscriber Plan / Payer (Ef fective for All Dates) Name:Neris Danisha Wade Member ID:Not on file Relation to Subscriber:Not on file Name:DANISHA CORDON Subscriber ID:Not on file Address: [address] [place] [address] Payer ID:Not on file Group ID:Not on file Type:Self Pay Address: [place], [place] Care Teams Engineering Mgr Relationship Specialty Start Date End Date Major Palacios DO [address] [place] [address] PCP - General 05/03/19
--- OUTSIDE RECORDS SUMMARY | 2025-06-12 10:02 | XMS_ITS | Clinical Summary ---
Author Organization [facility] Address [address] [place] [address] Phone Care Team Providers Care Tool Lapper Hand Name Role Phone Provider, None Primary Care [...] Comments Blood Pressure 138/71 07/18/2015 1:30 PM SALVAGER Pulse 89 07/18/2015 1:30 PM SALVAGER Temperature 36.6 C (97.8 F) 07/18/2015 9:18 AM SALVAGER Respiratory Rate 19 07/18/2015 1:30 PM SALVAGER Oxygen Saturation 96% 07/18/2015 1:30 PM SALVAGER Inhaled Oxygen Concentration - - Weight 127 kg (280 lb) 07/18/2015 9:18 AM SALVAGER Height 175.3 cm (5' 9) 07/18/2015 9:18 AM SALVAGER Body Mass Index 41.35 07/18/2015 9:18 AM SALVAGER Plan of Treatment Not on file Care Teams Tool Lapper Hand Relationship Specialty Start Date End Date Provider, None [place] PCP - General 07/18/15
--- OUTSIDE RECORDS SUMMARY | 2025-06-12 10:02 | XMS_ITS | Clinical Summary ---
Author Organization [facility] Address [address] [place] [address] Care Team Providers Care Foundry Worker General Name Role Phone Parrish Lovett MD Unavailable [phone] Miscellaneous, Not In File Unavailable Unava Claudio Chiu MD Primary Care Provider [phone] Allergies Active Allergy Reactions Criticality Noted Date Comments Coconut Latex Penicillin G Penicillins Shellfish Containing Products Venom-Honey Bee Wasp Venom Rash,Urticaria Medium 05/03/2019 Medications ondansetron ODT (ZOFRAN-ODT) 4 mg disintegrating tablet Dissolve 1 tablet oral every 4 hours as needed for nausea or vomiting. 15 tablet 04/01/20 Active Additional Information Patient not taking.Reported on 10/23/2024 butalbital-acetami nophen-caffeine (ESGIC) 50-325-40 mg per tabletIndications: Tension-Type Headache Take 1-2 tablets by mouth every 4 (four) hours as needed for headaches (1 tablet for mild to moderate pain or 2 tablets for severe pain.) Do not exceed 6 tablets/day. 20 tablet 03/24/20 20 Active Additional Information Patient not taking.Reported on 10/23/2024 acetaminophen (TYLENOL) 325 mg tabletIndications: Pain Take 2 tablets (650 mg total) by mouth every 4 (four) hours as needed for pain (first line headache treatment) Take with ibuprofen. Do not take with Esgic. 04/04/20 Active prochlorperazine (COMPAZINE) 10 mg tablet Take 1 tablet (10 mg total) by mouth every 6 (six) hours as needed (2nd line treatment for headache) 30 tablet 1 04/04/20 20 Active Additional Information Patient not taking.Reported on 10/23/2024 ibuprofen (ADVIL,MOTRIN) 600 mg tabletIndications: Pain Take 1 tablet (600 mg total) by mouth every 8 (eight) hours as needed for pain (First line headache treatment) To be administered with tylenol. 04/04/20 Active gabapentin (NEURONTIN) 100 mg capsule Take 1 capsule (100 mg total) by mouth 3 (three) times a day 90 capsule 11 04/01/20 21 Active Additional Information Patient not taking.Reported on 12/16/2022 topiramate (TOPAMAX) 50 mg tablet Take 1 tablet (50 mg total) by mouth daily 10/29/19 Active azithromycin (ZITHROMAX) 250 mg tabletIndications: Strep pharyngitis Take 2 tablets the first day, then 1 tablet daily for 4 days 6 tablet 12/17/19 23 Active Additional Information Patient not taking.Reported on 10/23/2024 Active Problems Problem Noted Date Diagnosed Date Vertigo 12/01/2013 Overview (10/21/2016): Vertigo Immunizations Immunization Administration Dates Next Due [employer]ware SARS-CoV-2 Monovalent Vaccination (12+ Yrs) PURPLE 10/26/2020,10/04/2020 Surgical History Surgery Date Site/Laterality Comments OTHER SURGICAL HISTORY c sections CHOLECYSTECTOMY gallbladder removed OTHER SURGICAL HISTORY lymphectomy OTHER SURGICAL HISTORY c. hysterectomy OTHER SURGICAL HISTORY foot surgery-left SECTION 07/18/1994 - 07/17/1995 C section SECTION 07/18/1996 - 07/17/1997 C section OTHER SURGICAL HISTORY Tonsils and adenoids 1995 OTHER SURGICAL HISTORY Gallbladder surgery 1997 OTHER SURGICAL HISTORY Hysterectomy 2003 OTHER SURGICAL HISTORY Foot surgery 2006 OTHER SURGICAL HISTORY Lumpectomy 1999 HYSTERECTOMY LUMBAR PUNCTURE WO INJECTION, DIAGNOSTIC 04/03/2020 N/A Medical History Medical History Date Comments Osteoarthritis Family History Medical History Relation Name Comments Heart attack Father Cancer Paternal Grandmother Relation Name Status Comments Father Paternal Grandmother Social History Tobacco Use Types Packs/Day Years Used Date Smoking Tobacco: Never Smokeless Tobacco: Never Tobacco Cessation:Counseling Given: Not Answered Alcohol Use Standard Drinks/Week Comments Yes 0 (1 standard drink = 0.6 oz pur e alcohol) AUDIT-C Answer Date Recorded Q1: How often do you have a drink containing alc ohol? 2-4 times a month 10/23/2024 Q2: How many drinks containi ng alcohol do you have on a typical day when you are drinking? 3 or 4 10/23/2024 Q3: How often do you have si x or more drinks on one occasion? Never 10/23/2024 Comments No Sex and Gender Information Value Date Recorded Sex Assigned at Not on file Legal Sex Female 7:44 PM [employer] Gender Identity Not on file Sexual Orientation Not on file Last Filed Vital Signs Vital Sign Reading Time Taken Comments Blood Pressure 126/89 10/23/2024 8:57 AM CDT Pulse 76 10/23/2024 8:57 AM CDT Temperature 36.7 C (98 F) 07/17/2024 12:13 PM [employer] Respiratory Rate 16 07/17/2024 12:13 PM [employer] Oxygen Saturation 98% 07/17/2024 12:13 PM [employer] Inhaled Oxygen Concentration - - Weight 120.2 kg (265 lb) 10/23/2024 8:57 AM CDT Height 172.7 cm (5' 8) 10/23/2024 8:57 AM CDT Body Mass Index 40.29 10/23/2024 8:57 AM CDT Plan of Treatment Health Maintenance Due Date Last Done Comments Breast Cancer Screening-Mammogram 1969 Colon Cancer Screening-Colonoscopy 1969 Depression Screening 1969 Hepatitis C Screening 1969 DTaP/Tdap/Td Vaccine (1 - Tdap) 1980 Hepatitis B Screening 1987 Regular Well Visit/Exam 18-64 1987 Zoster Vaccine (1 of 2) 2019 Covid-19 Vaccine (3 - 2024-2 6 season) 2025 10/26/2020, 10/04/2020 Influenza Vaccine (#1) 2025 Pneumococcal vaccine <65 Aged Out No longer eligible based on patient's age to complete this topic Insurance [id number] CHOICE PLUS [facility] H[facility]/PPO Address: [place] [address] CHOICE PL[facility]/PPO Address: [place] [address] CHO[employer] [facility] H[facility]/PPO Address: [place] [address] Care Teams Foundry Worker General Relationship Specialty Start Date End Date Claudio Granado MD [address] [place] [address] PCP - General Family Practice 09/19/24 Parrish Lovett MD Referring Physician Neurosurgery 04/04/20 Miscellaneous, Not In File 04/04/20
[2025-06-14 11:58] LABS: Iron 91 ug/dL (37-170)
[2025-06-14 12:43] LABS: Ferritin 50.10 ng/mL (11.1-264)
[2025-06-14 12:48] LABS: Percent Iron Saturation 29 % (20-50)
== END 2025-06-12 09:30 | disposition home or self-care (01) ==
LOC: ANHBWCLAB 09:30
PROVIDERS: PCP Family Medicine; Visit Provider Physician Assistant
DX: D64.9 Anemia, unspecified (principal)
CPT/HCPCS: 36415; 82728; 83540; 83550